=== PATIENT | female | born 1935 | race Caucasian/White ===

== ENCOUNTER 2016-08-19 08:42 | Observation (INO) | payer MEDICARE, BC ==
[2016-08-19] MEDS ORDERED: Diazepam TAB(*) 5 MG ONE (09:44)
[2016-08-19 09:54] LABS: Hematocrit 40 % (35-47); Hemoglobin 13.6 g/dl (12.0-16.0); Mean Corpuscular HGB Conc 34 g/dl (31-36); Mean Corpuscular Hemoglobin 32 pg (27-31); Mean Corpuscular Volume 95 fL (80-97); Mean Platelet Volume 9 um3 (7.4-10.4); Red Blood Count 4.22 10^6/ul (4.0-5.4); Red Cell Distribution Width 14 % (10.5-15); White Blood Count 8.7 10^3/ul (3.5-10.8)
[2016-08-19] MEDS ORDERED: ceFAZolin 2 GM PREMIX (*) 2 GM/50 ML BAG IVPB ONE (10:00)
[2016-08-19 10:04] LABS: BUN/Creatinine Ratio 16.8 (8-20); Calcium 9.2 mg/dL (8.6-10.3); EGFR Non-African American 56.7 (>60); Potassium 3.8 mmol/L (3.5-5.0)
[2016-08-19] MEDS ORDERED: Naloxone* 0.4 MG/ML 1 ML VIAL ONE (10:28)
[2016-08-19] MEDS ORDERED: fentaNYL* 50 MCG/ML 2 ML VIAL (100 MCG VIAL) ONE (10:28)
[2016-08-19] MEDS ORDERED: Flumazenil* 0.1 MG/ML 5 ML MDV ONE (10:28)
[2016-08-19] MEDS ORDERED: Midazolam* 1 MG/ML 5 ML VIAL (5 MG) ONE (10:28)
[2016-08-19] MEDS ORDERED: Iohexol 300 (CONTRAST) 10 ML SDV ONE (10:28)
[2016-08-19] MEDS ORDERED: Lidocaine 1% INJ* 10 MG/ML 30 ML SDV ONE (10:36)
[2016-08-19] MEDS ORDERED: Acetaminophen TAB* 325 MG PO PRN (12:09)
[2016-08-19] MEDS ORDERED: Potassium Chlor TAB* 10 MEQ TAB.ER PO ONE (12:17)
--- NOTE | 2016-08-19 13:08 | RAD ---
HISTORY: Status post pacemaker placement COMPARISONS: None VIEWS:1: Single frontal portable view of the chest at 12:30 PM FINDINGS: LINES AND TUBES: A dual-lead pacemaker is noted. CARDIOMEDIASTINAL SILHOUETTE: The cardiomediastinal silhouette is normal for portable technique. PLEURA: The costophrenic angles are sharp. No pleural abnormalities are noted. There is no appreciable pneumothorax. LUNG PARENCHYMA: The lungs are clear. ABDOMEN: The upper abdomen is clear. There is no subphrenic gas. BONES AND SOFT TISSUES: No bone or soft tissue abnormalities are noted. IMPRESSION: LINES AND TUBES ABOVE. NO ACTIVE CARDIOPULMONARY DISEASE.
[2016-08-19] MEDS: Cephalexin CAP* 250 MG PO SCH ×3 (15:29→21:37)
[2016-08-19] MEDS ORDERED: traZODone TAB* 50 MG TAB PO SCH (21:00)
--- NOTE | 2016-08-20 08:21 | RAD ---
INDICATION: Status post pacemaker placement. COMPARISON: Comparison is made with a prior study from August 19, 2016. TECHNIQUE: Dual-energy PA and lateral views of the chest were obtained. FINDINGS: The heart is within normal limits in size. There is a dual-chamber transvenous pacemaker present. The lungs are clear. No pleural effusion or pneumothorax is seen. IMPRESSION: Status post pacemaker placement, no evidence for acute finding.
[2016-08-20] MEDS: Cephalexin CAP* 250 MG PO SCH ×2 (08:47→13:16)
[2016-08-20] MEDS ORDERED: VITAMIN B PO SCH (09:00)
[2016-08-20] MEDS ORDERED: SELENIUM 200 MCG PO SCH (09:00)
[2016-08-20] MEDS ORDERED: Cholecalciferol TAB* 1000 UNITS PO SCH (09:00)
[2016-08-20] MEDS ORDERED: Ascorbic Acid TAB* 500 MG PO SCH (09:00)
[2016-08-20] MEDS ORDERED: Calcium/Vitamin D TAB 250/125* TAB PO SCH (09:00)
[2016-08-20] MEDS ORDERED: Diltiazem CD CAP* 120 MG PO SCH (10:00)
[2016-08-20 12:29] VITALS: BP 146/65
--- NOTE | 2016-08-20 19:39 | HP ---
ADMISSION HISTORY AND PHYSICAL: DATE OF ADMISSION: 08/19/16 HISTORY OF PRESENT ILLNESS: Mrs. Jang is a 80-year-old woman with a longstanding history of exercise-induced palpitations. She had supraventricular tachycardia documented on event monitors and Cardizem was started. She then had episodes of dizziness and an event monitor revealed 3.7- second pause as well as persistent bursts of supraventricular tachycardia. The patient was admitted for elective pacemaker implantation. PAST MEDICAL HISTORY: The patient has a past medical history of supraventricular tachycardia, sick sinus syndrome as above, dyslipidemia with an elevated LDL cholesterol, osteopenia, paroxysmal atrial fibrillation. PAST SURGICAL HISTORY: Tubal ligation. OUTPATIENT MEDICATIONS: Included: 1. Eliquis 5 mg b.i.d., on hold. 2. Selenium ER 200 mg a day. 3. Vitamin D3 high potency 1000 units daily. 4. Iron every other day. 5. Fish oil daily. 6. Vitamin B12 at 100 mcg a day. 7. Trazodone 50 mg q.h.s. 8. Calcium and vitamin D 600/800 mg daily. 9. Vitamin C 500 mg a day. 10. Aleve p.r.n. ALLERGIES: She has no known drug allergies. FAMILY HISTORY: Significant in that her father had several myocardial infarctions starting at age 79. Her mother with complications of diverticulosis. 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 She is . Supportive . Very physically active at the gym. Never smoked. Two alcoholic beverages a day. Likes her coffee. REVIEW OF SYSTEMS: Negative for fevers, chills, sweats, change in bowel or bladder habits. No recurrent dizziness episodes since Cardizem stopped but persistent palpitations intermittently. All other review of systems was negative. PHYSICAL EXAMINATION GENERAL APPEARANCE: Petite, fit appearing older woman in no acute distress, psychologically calm, cooperative, pleasant. VITAL SIGNS: On arrival to the hospital, the patient's blood pressure was 146/ 72, pulse was 77, saturations 99% on room air and she was afebrile at 98.0. HEENT: Pupils were equal and round. Mucous membranes were moist. NECK: Without increased JVP. LUNGS: Clear with good effort. No wheezes, rales or rhonchi. CORONARY: S1, S2 regular without murmurs. ABDOMEN: Soft, nontender. No hepatosplenomegaly. EXTREMITIES: Lower extremities were free of edema. NEUROLOGIC: Awake, alert and oriented to person, place and time. Cranial nerves II through XII intact. Grossly normal sensory and motor function in the upper and lower extremities and normal gait. SKIN: Warm and dry. No cyanosis or rashes. DIAGNOSTIC STUDIES AND LABORATORY DATA: White count 8.7, hemoglobin 13.6, platelets 206, INR 0.95. Sodium 135, potassium 3.8, chloride 100, bicarb 27, BUN 16, creatinine 0.95. SUMMARY: Dina Jang is a 80-year-old woman with tachy-shanique syndrome, supraventricular tachycardia with symptomatic bradycardia with Cardizem for elective pacemaker implantation. For her combination of supraventricular tachycardia and hypertension, I will reinitiate Cardizem CD 120 mg a day once the pacemaker is in. She has not been in sustained atrial fibrillation, and I am holding her Eliquis for 2 days prior to resuming it unless she develops atrial fibrillation post pacer. CC: Kwabena Garcia MD * [id number]/[facility] #: [id number] ANDREWS
--- NOTE | 2016-08-20 20:38 | OP ---
DATE OF OPERATION: 08/19/16 - ROOM #441 DATE OF : 37 SURGEON: Dana Sutton MD ANESTHESIA: MAC. PRE-OP DIAGNOSIS: Tachy-shanique syndrome. POST-OP DIAGNOSIS: Tachy-shanique syndrome. OPERATIVE PROCEDURE: Dual-chamber pacemaker implantation. ESTIMATED BLOOD LOSS: Less than 5 cc. COMPLICATIONS: None. DESCRIPTION OF PROCEDURE: The indications, specifics and risks of the procedure were discussed in depth with the patient and her and she was amenable to proceeding. The patient is right handed. The left subclavian fossa was prepped and draped in the usual sterile fashion. A time-out was called. Following this, throughout the procedure the patient received a total of 4 mg of Versed and 50 mcg of fentanyl as well as 20 cc of 1% lidocaine. A 10 cc of radiopaque dye was injected in the left upper extremity outlining the left subclavian vein. Following local anesthesia, using a 10 blade knife, a 2.5 cm incision was made in the left deltopectoral groove. Using Bovie and blunt dissection, this was extended to the level of the pectoralis muscle. Additional lidocaine was infused inferiorly, medially and using blunt dissection , a small pocket was fashioned. Using a modified Seldinger technique, the right subclavian vein was cannulated and using fluoroscopic guidance, a guidewire was inserted into the right atrium and the process was repeated with a second guidewire. Using an introducer technique, the right ventricular lead was guided into the right ventricular apex. Pacing and sensing thresholds were good. Using an introducer technique, a second lead was inserted into the right atrium. The first position had good sensing but suboptimal pacing, so the lead was then repositioned with excellent sensing and pacing thresholds. Both leads were then sutured to the pocket using 0 silk suture. The pocket was copiously irrigated. The leads were attached to the generator. The generator was placed in the pocket and the incision was closed using 2 layers of resorbable suture, 2 -0 followed by 4-0. It should be noted the OR lights went down transiently during the last suture. This did not lead to any complications and the backup generator system came on almost immediately. The shaw were then applied followed by an external dressing. We had checked pacing and sensing thresholds with the device in the pocket and diaphragmatic stimulation in high voltage had also been checked during the procedure. Findings: Device: Medtronic model A2DR01 Serial Number: [id number] Atrial lead: Medtronic model # 5076-45, Serial # [id number], P waves 2.3 mV, lead impedance 650 Ohms, Pacing threshold: 0.5 V @ 0.5 ms Ventricular lead: Medtronic model # 5076-52, Serial # [id number], R waves: 13.2 mV, lead impedance 1122 Ohms, pacing threshold: 0.9V @ 0.5 ms. The patient was hemodynamically stable throughout the procedure and transferred to Recovery in good condition. [id number]/[facility] #: [id number] ANDREWS
[2016-08-21] MEDS ORDERED: Apixaban* 5 MG TAB PO SCH (09:00)
--- NOTE | 2016-08-21 09:25 | DS ---
CC: Dr. Garcia; Dr. Sutton; Dr. Lainez DISCHARGE SUMMARY: DATE OF ADMISSION: 08/20/16 DATE OF DISCHARGE: 08/20/16 ADDENDUM: This is an addendum to history and physical note that was dictated by Dr. Sutton. Please refer to the full history and physical note dated . In summary, Ms. Jang is a pleasant 80-year-old female patient with diagnosis with tachybrady syndrome. She does have history of paroxysmal atrial fibrillation and has history of SVT and a permanent pacemaker implantation was recommended for further utilizing treatment that she was on Cardizem that was discontinued secondary to significant multiple pauses and concerns of significant bradycardia. The patient underwent permanent pacemaker implantation DDD by Dr. Sutton. Please refer to full operative note for that. She suffered no complications. She was seen by me today. She feels overall well. Her pacemaker interrogated today, it is functioning normally. It has lower rate of 60, upper rate of 130, and PAV 180, and SAMIR 150. The mode is AAI/DDD. It is sensing both atrium and ventricle 93% of the time. The patient on exam is hemodynamically stable. Examination of the pacemaker site on the left subclavicular area, no signs of hematoma and no bleeding. The patient had a chest x-ray today that showed no acute findings. She had labs from yesterday with a white blood cell of 8.7, hemoglobin 13.6, hematocrit 40, and platelets 206. Chemistry showed sodium 135, potassium 3.8, carbon dioxide 27, BUN 16, and creatinine 0.95. Her medications, she was started on Cardizem at 120 mg daily and she is to take Keflex 250 mg p.o. q.i.d. as directed by Dr. Sutton. She is to continue on her other medications, which is Eliquis 5 mg twice a day and vitamin D at 1000 units daily, vitamin C 500 mg daily, vitamin B12 at 100 mcg daily, selenium 200 mcg daily, and trazodone 50 mg p.o. at bedtime. She will have arrangements to follow up with Dr. Sutton in 1 week. She had all the instructions and the care of her permanent pacemaker, the aftercare after the implant. I answered all her concerns and questions up to her satisfaction. [id number]/[facility] #: [id number] MTDD
== END 2016-08-20 14:41 | disposition home or self-care (01) ==
LOC: CHICATH 08:42 → MEDTELE 12:09
PROVIDERS: ADMIT Specialist; ATTEND Specialist
DX: I49.5 Sick sinus syndrome (principal); I48.0 Paroxysmal atrial fibrillation; Z79.01 Long term (current) use of anticoagulants; I47.1 Supraventricular tachycardia; E78.5 Hyperlipidemia, unspecified; E78.00 Pure hypercholesterolemia, unspecified; Z79.899 Other long term (current) drug therapy
CPT/HCPCS: 33208; 36415; 71010; 71020; 80048; 85025; 85610; 85730; 93005; A9270-GY; C1785; C1898; G0378; J0690; J2250; J2310; J3010; Q9967

== ENCOUNTER 2016-10-23 01:19 | Emergency (ER) | payer MEDICARE, BC ==
[2016-10-23] MEDS ORDERED: Albuterol 2.5 MG/3 ML NEB.SOL* (0.083%) INH ONE (01:54)
[2016-10-23] MEDS ORDERED: methylPREDNISolone 125 MG* 2 ML VIAL IV ONE (01:55)
[2016-10-23] MEDS ORDERED: Albuterol 2.5 MG/3 ML NEB.SOL* (0.083%) ONE (02:03)
[2016-10-23 02:22] LABS: Hematocrit 36 % (35-47); Hemoglobin 11.9 g/dl (12.0-16.0); Mean Corpuscular HGB Conc 33 g/dl (31-36); Mean Corpuscular Hemoglobin 31 pg (27-31); Mean Corpuscular Volume 95 fL (80-97); Mean Platelet Volume 9 um3 (7.4-10.4); Red Blood Count 3.82 10^6/ul (4.0-5.4); Red Cell Distribution Width 14 % (10.5-15); White Blood Count 16.2 10^3/ul (3.5-10.8)
[2016-10-23 02:24] LABS: Add Diff/Slide Review? Slide Review Added; Comments Flag Yes
[2016-10-23 02:34] LABS: Albumin 3.7 g/dL (3.2-5.2); BUN/Creatinine Ratio 30.9 (8-20); Calcium 9.1 mg/dL (8.6-10.3); EGFR African American 87.7 (>60); EGFR Non-African American 68.2 (>60); Globulin 2.9 g/dL (2-4); Potassium 4.4 mmol/L (3.5-5.0); Total Bilirubin 0.7 mg/dL (0.2-1.0); Total Protein 6.6 g/dL (6.4-8.9)
[2016-10-23 02:50] LABS: Troponin I 0.49 ng/mL (<0.04)
[2016-10-23] MEDS ORDERED: Aspirin TAB* 325 MG PO ONE (02:55)
[2016-10-23] MEDS ORDERED: Nitroglycerin 2% OINT* 1 GM PAK TOPICAL ONE (03:11)
[2016-10-23] MEDS ORDERED: Nitroglycerin 2% OINT* 1 GM PAK ONE (03:11)
[2016-10-23] MEDS ORDERED: Heparin DRIP 25,000 UNITS(*) 25,000 UNITS/500 ML BAG IV ONE (03:15)
[2016-10-23] MEDS ORDERED: Iohexol 350* (CONTRAST) 500 ML MDV IV ONE (03:15)
[2016-10-23] MEDS ORDERED: Furosemide IV* 10 MG/ML 2 ML VIAL (20 MG) IV SLOW PU ONE (03:53)
[2016-10-23] MEDS ORDERED: Furosemide IV* 10 MG/ML 10 ML VIAL (100 MG) IV ONE (03:53)
[2016-10-23] MEDS ORDERED: Heparin VIAL(*) 5000 UNITS/ML VIAL (FIVE THOUSAND) IV SCH ×2 (04:00)
[2016-10-23] MEDS ORDERED: Piperac/Tazob 3.375 gm in NS* 3.375 GM/100 ML BAG IVPB ONE (04:55)
--- NOTE | 2016-10-23 05:25 | ED ---
Dior Kirkland Matthew, scribed for Marc Rubi on 10/23/16 at 0221 . Shortness of Breath - HPI Summary HPI Summary: A 80 y/o female presents to the ED with constant SOB since 21:00 yesterday. She denies pedal edema, chest pain, cough, and fever. On 10/13/16, the patient states that she had a cardiac ablation at [facility]. Her O2 sat on arrival was 90% . Hx of Afib and atrial flutter. The patient has a pacemaker. She isn't on home oxygen. No Hx of COPD, asthma, or emphysema. FHx of CAD. - History of Current Complaint Chief Complaint: EDRespiratoryDistress Time Seen by Provider: 10/23/16 01:43 Hx Obtained From: Patient Onset/Duration: Lasting Hours, Still Present Timing: Constant Current Severity: Moderate Dyspnea At: Rest Associated Signs & Symptoms: Wheezing - Allergy/Home Medications Allergies/Adverse Reactions: Allergies Allergy/AdvReac Type Severity Reaction Status Date / Time No Known Allergies Allergy Verified 08/19/16 09:21 Home Medications: Home Medications Calcium Carbonate-Cholecalcife [Calcium+D3 600-800 mg-Unit] 1 tab PO 10/23/16 [ History] Diltiazem CD CAP* [Cardizem CD CAP*] 120 mg PO BID 10/23/16 [History Confirmed 10/23/16] Dofetilide CAP* [Tikosyn CAP*] 125 mcg PO BID 10/23/16 [History Confirmed ] [place]-3 Fatty Acids (Nf) [Fish Oil (NF)] 1,000 mg PO DAILY 10/23/16 [History Confirmed 10/23/16] Pantoprazole Sodium [Protonix] 40 mg PO DAILY 10/23/16 [History Confirmed ] Potassium Chloride Microencaps [Potassium Chloride Cr] 10 meq PO BID 10/23/16 [ History Confirmed 10/23/16] Sucralfate TAB* [Carafate*] 1 gm PO QID 10/23/16 [History Confirmed 10/23/16] PMH/Surg Hx/FS Hx/Imm Hx Cardiovascular History: Reports: Hx Pacemaker/ICD - 08/19/2016, Other Cardiovascular Problems/Disorders - atrial fibrillation - Cancer History Hx Chemotherapy: No Hx Radiation Therapy: No Infectious Disease History: No Infectious Disease History: Denies: Traveled Outside the [place] in Last 30 Days - Family History Known Family History: Positive: Cardiac Disease - Social History Alcohol Use: Daily Alcohol Amount: x 1 Substance Use Type: Reports: None Smoking Status (MU): Never Smoked Tobacco Review of Systems Constitutional: Negative Negative: Fever Eyes: Negative ENT: Negative Negative: Chest Pain Positive: Shortness Of Breath. Negative: Cough Gastrointestinal: Negative Genitourinary: Negative Musculoskeletal: Negative Skin: Negative Neurological: Negative Psychological: Normal All Other Systems Reviewed And Are Negative: Yes Physical Exam Triage Information Reviewed: Yes Vital Signs On Initial Exam: Initial Vitals Temp Pulse Resp BP Pulse Ox 98.4 F 87 28 150/83 99 10/23/16 01:24 10/23/16 01:24 10/23/16 01:24 10/23/16 01:24 10/23/16 01:24 Vital Signs Reviewed: Yes Appearance: Positive: Well-Appearing, No Pain Distress Skin: Positive: Warm, Skin Color Reflects Adequate Perfusion, Dry Head/Face: Positive: Normal Head/Face Inspection Eyes: Positive: EOMI, TRENT ENT: Positive: Normal ENT inspection Neck: Positive: Supple, Nontender Respiratory/Lung Sounds: Positive: Clear to Auscultation, Wheezes - mild wheezing bilaterally Cardiovascular: Positive: RRR, Pulses are Symmetrical in both Upper and Lower Extremities Abdomen Description: Positive: Nontender, Soft Bowel Sounds: Positive: Present Musculoskeletal: Positive: Normal, Strength/ROM Intact Neurological: Positive: Normal, Sensory/Motor Intact, Alert, Oriented to Person Place, Time Psychiatric: Positive: Affect/Mood Appropriate Diagnostics - Vital Signs Vital Signs Temp Pulse Resp BP Pulse Ox 10/23/16 01:24 98.4 F 87 28 150/83 99 - Laboratory Result Diagrams: 10/23/16 02:15 10/23/16 02:15 Lab Statement: Any lab studies that have been ordered have been reviewed, and results considered in the medical decision making process. - Radiology CXR Xray Interpretation: No Acute Changes Radiology Interpretation Completed By: ED Physician - CT CTA Chest CT Interpretation: Positive (See Comments) - No evidence of pulmonary embolism. Cardiomegaly. Coronary artery calcification seen. Moderate pericardial effusion. No aortic aneurysm. No mediastinal hematoma. Mild reflux of IV contrast into the proximal IVC, suggestive of elevated right heart pressures. Dual-lead pacemaker with the tip in the right atrium and right ventricle. Moderate-sized bilateral pleural effusions with adjacent atelectasis. Underlying consolidation cannot be excluded. Suggestion of possible hepatosplenomegaly. CT Interpretation Completed By: Radiologist - EKG 01:55 Cardiac Rate: NL - 79 bpm EKG Interpretation: Sinus Arrhythmia Course/Dx - Course Assessment/Plan: A 80 y/o female presents to the ED with constant SOB since 21: 00 yesterday s/p cardiac ablation on 10/13/16. Labs were reviewed and showed troponin of 0.49 and D-dimer of 618. CXR showed no active cardiopulmonary disease. CTA Chest shows moderate pericardial effusion and pleural effusion. Discussed the case with Dr. Alvarez who in turn discussed the case with Dr. Adam (Screen Printing Paster). Dr. Adam recommended transfer of the patient to [facility] for pericardial effusion. Discussed the case with Dr. Paulson who accepts transfer of the patient. - Diagnoses Provider Diagnoses: Dyspnea, Pericardial effusion, Pleural effusion - Physician Notifications Discussed Care of Patient With: Dr. Alvarez (Hospitalist) at 03:22 -- Notified of patient's history. He recommends repeat troponin at 04:15 and he'll evaluate the patient. Dr. Paulson (Cardiology) at 04:46 -- Notified of patient's history and accepts transfer of the patient. Discharge - Discharge Plan Condition: Stable Disposition: TRANS HIGHER LVL OF CARE FAC Referrals: Kwabena Garcia MD [Primary Care Provider] - The documentation as recorded by the Dior rogers Matthew accurately reflects the service I personally performed and the decisions made by , Marc Rubi.
[2016-10-23 06:06] VITALS: BP 117/67
[2016-10-23] MEDS ORDERED: Dofetilide CAP* 125 MCG PO ONE (06:14)
--- NOTE | 2016-10-23 07:25 | CONSULT ---
Consult Consult: PCP: Lo Garcia MD Date/Time of Evaluation: 10/23/2016 0215 Reason for Consult: consideration for admission HPI: Mrs Jang is a 80YO female 3 days s/p pulmonary vein ablation for AFIB done at [facility] who has been have new intermittent SOB primarily at night since. Tonight she tried to go to bed around 2130, but was unable to sleep 2nd progressive PND now with some substernal chest pressure worsened by deep inspiration. She denied N/V, palpitations, light-headedness, sweats, F/C, cough , congestion, or other issues. Troponin is 0.49, in line with the expected peak in cardiac markers 3 days post ablation and should return to normal by day 7. Vital signs are stable and normal excepting a RR in the mid-20s. CXR shows poor inspiration with suspicion of B subpulmonic effusions vs less likely atelectasis or infiltrates. Given her symptoms, a d-dimer in the 600s, and recent procedure known to cause hypercoagulabilty for 2weeks as well as concern for potential injury from the ablation, decision was made to await CTA chest to further evaluate. CTA showed a presumably new moderate pericardial effusion as there was no mention of it in Arnie Sutton MD cardiology's H&P dated 08/19/2016 at which time Mrs Jang underwent dual chamber pacer placement for sick sinus syndrome. Ruma Adam MD cardiology pss delivery professional was consulted via phone and agreed the risk of trauma from her ablation being the cause of her pericardial effusion made her inappropriate for [facility] admission and so recommendation for transfer back to [facility] was made. PMedHx sick sinus syndrome s/p dual chamber pacer 08/2016 pulmonary vein ablation 10/20/2016 SVT HLD pAFIB osteopenia Allergies No Known Allergies Allergy (Verified 08/19/16 09:21) Ambulatory Orders Calcium 600+D 600-800 mg-Unit 1 tab PO DAILY 08/19/16 Eliquis 5 mg PO BID 08/19/16 Fish Oil 1 cap PO DAILY 08/19/16 Iron 28 mg PO DAILY 08/19/16 Naprosyn 400 mg PO PRN 08/19/16 Selenium 200 Mcg 200 mg PO DAILY 08/19/16 Trazodone HCl 50 mg PO BEDTIME 08/19/16 Vitamin B 12 100 mcg PO DAILY 08/19/16 Vitamin C 500 mg PO DAILY 08/19/16 Vitamin D3 1,000 units PO DAILY 08/19/16 Acetaminophen TAB* [Tylenol TAB*] 650 mg PO Q4H PRN #0 tab 08/20/16 Calcium Carbonate-Cholecalcife [Calcium+D3 600-800 mg-Unit] 1 tab PO 10/23/16 Diltiazem CD CAP* [Cardizem CD CAP*] 120 mg PO BID 10/23/16 Dofetilide CAP* [Tikosyn CAP*] 125 mcg PO BID 10/23/16 [place]-3 Fatty Acids (Nf) [Fish Oil (NF)] 1,000 mg PO DAILY 10/23/16 Pantoprazole Sodium [Protonix] 40 mg PO DAILY 10/23/16 Potassium Chloride Microencaps [Potassium Chloride Cr] 10 meq PO BID 10/23/16 Sucralfate TAB* [Carafate*] 1 gm PO QID 10/23/16 PSurgHx as above, otherwise only tubal ligation SocHx: no tobacco, quit 2 alcoholic beverages daily recently, no recreational drugs; lives with her , physically active; 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; 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 FamHx: positive for CAD ROS: as above, otherwise reviewed and all were negative Constitutional: NAD, normally developed, well-nourished elderly white female vitals: Vital Signs Temp 36.6 C 10/23/16 02:57 Pulse 84 10/23/16 06:00 Resp 22 10/23/16 06:00 BP 117/67 10/23/16 06:00 Pulse Ox 94 10/23/16 06:00 Intake & Output 10/22/16 10/22/16 10/23/16 11:59 23:59 11:59 Intake Total 100 Balance 100 Weight 52.163 kg Intake: IV Fluids 100 HEENM: atraumatic; sclera/conjunctiva: non-icteric/clear; hearing: clinically intact; oropharynx: clear, mucosa moist Neck: soft tissue: non-tender; thyroid: normal Pulmonary: diminished B based, fair aeration, no accessory muscle use CV: RR/RR, normal S1S2, no carotid bruit, no jugular venous distention, 1+ B DP/ PT, trace B ankle edema Abdominal: soft, non-distended, non-tender, no rebound/guarding/rigidity, normoactive bowel sounds, no hepatosplenomegaly or masses, no costovertebral angle tenderness Musculoskeletal: general: grossly intact; gait: steady Integumental: normal appearance and texture of exposed skin Psychiatric orientation: AA&O to PPS affect: mildly anxious mood: pleasant eye contact: good content: reliable responses: timely insight: good Testing: Lab Results 10/23/16 10/23/16 10/23/16 Range/Units 02:15 02:15 02:15 WBC 16.2 H (3.5-10.8) 10^3/ul RBC 3.82 L (4.0-5.4) 10^6/ul Hgb 11.9 L (12.0-16.0) g/dl Hct 36 (35-47) % MCV 95 (80-97) fL MCH 31 (27-31) pg MCHC 33 (31-36) g/dl RDW 14 (10.5-15) % Plt Count 169 (150-450) 10^3/ul MPV 9 (7.4-10.4) um3 Neut % (Auto) 83.8 H (38-83) % Lymph % (Auto) 8.7 L (25-47) % [place] % (Auto) 5.6 (1-9) % Eos % (Auto) 0.3 (0-6) % Baso % (Auto) 1.6 (0-2) % Absolute Neuts (auto) 13.5 H (1.5-7.7) 10^3/ul Absolute Lymphs (auto) 1.4 (1.0-4.8) 10^3/ul Absolute Monos (auto) 0.9 H (0-0.8) 10^3/ul Absolute Eos (auto) 0 (0-0.6) 10^3/ul Absolute Basos (auto) 0.3 H (0-0.2) 10^3/ul Absolute Nucleated RBC 0.01 10^3/ul Nucleated RBC % 0 INR (Anticoag Therapy) 1.26 H (0.89-1.11) APTT 27.0 (26.0-36.3) seconds D-Dimer, Quantitative 618 H (Less Than 230) ng/mL Sodium 130 L (133-145) mmol/L Potassium 4.4 (3.5-5.0) mmol/L Chloride 98 L (101-111) mmol/L Carbon Dioxide 25 (22-32) mmol/L Anion Gap 7 (2-11) mmol/L BUN 25 H (6-24) mg/dL Creatinine 0.81 (0.51-0.95) mg/dL Est GFR ( Amer) 87.7 (>60) Est GFR (Non-Af Amer) 68.2 (>60) BUN/Creatinine Ratio 30.9 H (8-20) Glucose 126 H (70-100) mg/dL Calcium 9.1 (8.6-10.3) mg/dL Total Bilirubin 0.70 (0.2-1.0) mg/dL AST 46 H (13-39) U/L ALT 51 (7-52) U/L Alkaline Phosphatase 73 (34-104) U/L Total Creatine Kinase 31 (10-223) U/L CK-MB (CK-2) 3.0 (0.6-6.3) ng/mL Troponin I 0.49 H* (<0.04) ng/mL B-Natriuretic Peptide ( - 100) pg/mL Total Protein 6.6 (6.4-8.9) g/dL Albumin 3.7 (3.2-5.2) g/dL Globulin 2.9 (2-4) g/dL Albumin/Globulin Ratio 1.3 (1-3) 03//17 Range/Units 02:15 WBC (3.5-10.8) 10^3/ul RBC (4.0-5.4) 10^6/ul Hgb (12.0-16.0) g/dl Hct (35-47) % MCV (80-97) fL MCH (27-31) pg MCHC (31-36) g/dl RDW (10.5-15) % Plt Count (150-450) 10^3/ul MPV (7.4-10.4) um3 Neut % (Auto) (38-83) % Lymph % (Auto) (25-47) % [place] % (Auto) (1-9) % Eos % (Auto) (0-6) % Baso % (Auto) (0-2) % Absolute Neuts (auto) (1.5-7.7) 10^3/ul Absolute Lymphs (auto) (1.0-4.8) 10^3/ul Absolute Monos (auto) (0-0.8) 10^3/ul Absolute Eos (auto) (0-0.6) 10^3/ul Absolute Basos (auto) (0-0.2) 10^3/ul Absolute Nucleated RBC 10^3/ul Nucleated RBC % INR (Anticoag Therapy) (0.89-1.11) APTT (26.0-36.3) seconds D-Dimer, Quantitative (Less Than 230) ng/mL Sodium (133-145) mmol/L Potassium (3.5-5.0) mmol/L Chloride (101-111) mmol/L Carbon Dioxide (22-32) mmol/L Anion Gap (2-11) mmol/L BUN (6-24) mg/dL Creatinine (0.51-0.95) mg/dL Est GFR ( Amer) (>60) Est GFR (Non-Af Amer) (>60) BUN/Creatinine Ratio (8-20) Glucose (70-100) mg/dL Calcium (8.6-10.3) mg/dL Total Bilirubin (0.2-1.0) mg/dL AST (13-39) U/L ALT (7-52) U/L Alkaline Phosphatase (34-104) U/L Total Creatine Kinase (10-223) U/L CK-MB (CK-2) (0.6-6.3) ng/mL Troponin I (<0.04) ng/mL B-Natriuretic Peptide 478 H ( - 100) pg/mL Total Protein (6.4-8.9) g/dL Albumin (3.2-5.2) g/dL Globulin (2-4) g/dL Albumin/Globulin Ratio (1-3) ECG, personally reviewed: NSR rate 79, non-specific ST-T flattening in inferior leads similar to comparison 08/20/2016 CXR, personally reviewed: poor inspiration with suspicion of B subpulmonic effusions vs less likely atelectasis or infiltrates CTA chest, personally reviewed: FINDINGS: No evidence of pulmonary embolism. Cardiomegaly. Coronary artery calcification seen. Moderate pericardial effusion. No aortic aneurysm. No mediastinal hematoma. Mild reflux of IV contrast into the proximal IVC, suggestive of elevated R heart pressures. Dual- lead pacemaker with the tip in the right atrium and right ventricle. Moderate- sized bilateral pleural effusions with adjacent atelectasis. Underlying consolidations cannot be excluded. Suggestion of possible hepatosplenomegaly. Impression: 80F presenting with progressive PND since pulmonary vein ablation for AFIB 3 days ago with new finding of moderate pericardial effusion and moderate B pleural effusions DIAGNOSIS & PLAN Primary new/acute pericardial effusion : concerning for potential pulmonary vein injury : transfer to [facility] for further evaluation and management at higher level of care w/ access to open heart & cardiovascular surgery : D/C heparin GTT initiated in ED AFIB : give dofetilide dose at 6:30AM as scheduled prior to transfer, Dr Rubi notified of need B pleural effusions w/ elevated BNP : suspect related to CHF 2nd possible evolving cardiac tamponade vs other etiology : give 20mg IV furosemide & continue nitropaste
[2016-10-23] MEDS ORDERED: Nitroglycerin 0.1 mg/Hr PATCH* (2.5 MG) TRANSDERM SCH (09:00)
--- NOTE | 2016-10-23 09:55 | RAD ---
INDICATION: Difficulty breathing. Post pulmonary vein ablation on Tuesday. COMPARISON: October 23, 2016 chest radiograph. TECHNIQUE: Multidetector CT images were obtained from the lung apices to the upper abdomen with 58 mL Omnipaque 350 IV contrast. Pulmonary angiogram protocol. 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 REPORT: Small bilateral pleural effusions. Pleural fluid tracks into the LEFT major fissure superiorly. Proportional atelectasis. Mild prominence of the interlobular septa. Negative for pneumothorax. Negative for thoracic lymphadenopathy. Cardiomegaly. Coronary artery calcifications. Small pericardial effusion. RIGHT atrial and RIGHT ventricular pacemaker leads. Normal diameter thoracic aorta with minimal atherosclerotic plaque. No filling defects are identified from the main to the subsegmental pulmonary arteries to indicate presence of a pulmonary embolism. Limited images through the upper abdomen are remarkable for mild reflux of contrast from the RIGHT atrium to the IVC and hepatic veins. Negative for suspicious thoracic osseous lesions. IMPRESSION: 1. No evidence for pulmonary embolism. 2. The constellation of findings is most consistent with pulmonary vascular congestion and interstitial edema with associated small pleural effusions. 3. Mild passive congestion of the liver.
--- NOTE | 2016-10-23 10:08 | RAD ---
Indication: Shortness of breath. Atrial fibrillation. Comparison: CT chest of the same date and August 20, 2016 chest radiograph. Technique: Upright AP 0214 hours Report: Suboptimal inspiration with resulting crowding of the pulmonary markings. Mild prominence of the interstitial markings including the peripheral interlobular septa. Grossly clear pleural spaces. Negative for pneumothorax. RIGHT atrial and RIGHT ventricular level pacemaker leads. Cardiomegaly. Ill-defined central pulmonary vasculature. IMPRESSION: The constellation of findings is most consistent with mild interstitial pulmonary edema.
== END 2016-10-23 06:57 | disposition short-term general hospital (02) ==
LOC: ED 01:19
DX: I31.3 Pericardial effusion (noninflammatory) (principal); R06.00 Dyspnea, unspecified; J90 Pleural effusion, not elsewhere classified; R06.02 Shortness of breath
CPT/HCPCS: 36415; 71010; 71275; 80053; 82550; 82553; 83880; 84484; 85025; 85379; 85610; 85730; 93005; 94640; 96374; 96375; 99284; A9270-GY; J1644; J1940; J2543; J2930; Q9967

== ENCOUNTER 2017-12-25 21:36 | Emergency (ER) | payer MEDICARE, OTHER ==
--- NOTE | 2017-12-25 21:37 | UC ---
Cardiac HPI - HPI Summary HPI Summary: 82 yo female presents with left sided chest pain for the last 30 minutes. She was sitting reading a book with she felt a pain in her left chest. She describes the pain as sharp and is unsure if it is her breast or her chest/ heart. She tells me that she has an extensive cardiac history - is in and out of afib and has a pacemaker. Denies SOB, BUTLER, recent illness, dizziness, headache, abdominal pain, n/v. - History of Current Complaint Stated Complaint: CHEST PAIN Hx Obtained From: Patient Onset/Duration: Sudden Onset Timing: Constant Initial Severity: Moderate Current Severity: Moderate Pain Intensity: 6 Chest Pain Location: Left Anterior - Allergy/Home Medications Allergies/Adverse Reactions: Allergies Allergy/AdvReac Type Severity Reaction Status Date / Time No Known Allergies Allergy Verified 12/25/17 22:40 PMH/Surg Hx/FS Hx/Imm Hx Cardiovascular History: Cardiac Disease, Pacemaker/ICD, Atrial Fibrillation - Surgical History Surgical History: Yes Surgery Procedure, Year, and Place: pacemaker 08/31 - Family History Known Family History: Positive: Cardiac Disease - Social History Occupation: Retired Lives: With Family Alcohol Use: Daily Alcohol Amount: x 1 Substance Use Type: None Smoking Status (MU): Never Smoked Tobacco Review of Systems Constitutional: Fever Skin: Negative Eyes: Negative ENT: Negative Respiratory: Negative Cardiovascular: Chest Pain Gastrointestinal: Negative Genitourinary: Negative Neurovascular: Negative Neurological: Negative Psychological: Negative All Other Systems Reviewed And Are Negative: Yes Physical Exam - Summary Physical Exam Summary: GENERAL: NAD. WDWN. No pain distress. SKIN: No rashes, sores, lesions, or open wounds. NECK: Supple. Nontender. No lymphadenopathy. CHEST: CTAB. No r/r/w. No accessory muscle use. Breathing comfortably and in no distress. CV: RRR. scant possible PVC. Pulses intact. Brisk cap refill. NEURO: Alert. CN II-XII grossly intact. PSYCH: Age appropriate behavior. Triage Information Reviewed: Yes - Assessment/Plan Course Of Treatment: EKG 99 bpm atrial-paced complexes. PVCs. No ST changes as read by Dr. Jones. Her exam and vitals are WNL. She is still having mild chest discomfort. Given her cardiac history and continued discomfort - I advised her that for a more appropriate workup of her chest pain she should be evaluated in the ER. She was agreeable to this. Declined ambulance. will drive her. - Clinical Impression Provider Diagnoses: Chest pain Discharge - Sign-Out/Discharge Documenting (check all that apply): Discharge/Admit/Transfer - Discharge Plan Condition: Stable Disposition: HOME Referrals: Kwabena Garcia MD [Primary Care Provider] - Additional Instructions: For a more appropriate evaluation of your chest pain - please go to the Emergency Room. If your symptoms worsen on the way there, please line puller and dial 911. - Billing Disposition and Condition Condition: STABLE Disposition: HOME
[2017-12-25 21:50] VITALS: BP 145/88
--- OUTSIDE RECORDS SUMMARY | 2017-12-25 22:51 | XMS REPORT ---
:1935 External Reference #:[id number] Author Organization [facility] Address [address] [place] [address] Phone [phone] Care Team Providers Name Role Phone HCP/LW on file Primary Care Physician Unavailable Payers Type Date Identification Numbers Payment Provider Subscriber Medicare Primary Policy Number: [id number] [facility] [employer] PayID: [id number] [address] [place] [address] Commercial Effective: 2017 Policy Number: [facility] Al Hendrix Luan [id number] Insurance Group Number: [id number] [address] Group Name: [place] [address] PayID: [id number] Medigap Part B Effective: Policy Number: [employer] Al Hendrix 2017 [id number] Ind/Ppo/Hmo/Pos Luan Expires: 2017 PayID: [id number] [address] [address] [place] [address] Problems Date Description Provider Status Onset: 09/17/2011 Disorders of initiating and Kwabena Garcia M.D. Active maintaining sleep Family History Date Family Member(s) Problem(s) Comments Father Heart Disease beginning at age 79 Father due to Heart Disease () - problems age 80 Father heart disease at age 79, due to this at age 80 Mother due to Complications () From Diverticulosis Age 80 Mother due to complications from diverticulosis @ 80. 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 a little more. 1/08 Beverages Per Day pt aware that decreasing to 1/d is advisable for her health (but not willing/wanting to change). Discussed 09/14/10, at wc time she reported drinking little [id number] Daily Caffeine Consumes Caffeine Sun Exposure moderate amount of sun exposure Sun Exposure Uses sunscreen Seat Belt/Car Seat always uses seat belt Currently Active Patient is currently sexually active Contraceptive Methods None Age 1st Metter 23 Years Old Additional Info Sexual preference is men Allergies, Adverse Reactions, Alerts Date Description Reaction Status Severity Comments 09/01/2005 NKDA active Medications Medication Date Status Form Strength Qnty SIG Indications Ordering Provider Selenium 09/13/ Active Tablets 100mcg 1 tablet by Unknown 2018 mouth daily Cartia XT 05/23/ Active Caps ER 120mg 1 qd 2016 24HR MD Dana Dofetilide 10/18/ Active Capsules 125mcg 180ca 1 capsule Unknown 2016 ps by mouth every 12 hours Eliquis 01/22/ Active Tablets 5mg 1 by mouth 2015 twice a day MD Dana Vit D3 09/01/ Active 1000Iu 1 po qd Unknown 2005 Metoprolol 09/14/ Hx Tablets ER 25mg take 1/2 Silcoff, Succinate ER 2017 - 24HR tablet by Kwabena, 09/21/ mouth every M.D. 2018 morning for 1 week then stop it Doxycycline 05/06/ Hx Tablets 100mg 28tab 1 by mouth A69.20 Silcoff, Hyclate 2016 - s twice a day Kwabena 05/20/ for 2 weeks M.D. 2016 for lyme disease Spironolactone 03/17/ Hx Tablets 25mg 1/2 tablet Herman, 2016 - in am on MD Dana 2016, and Sat Colchicine 01/27/ Hx Tablets 0.6mg Take One Unknown 2017 - Tablet By 04/04/ Mouth Every 2016 Day Furosemide 01/27/ Hx Tablets 20mg one tab in Herman2016 - am on MD Dana Mondays Doxycycline 03/15/ Hx Capsules 100mg one po Unknown Monohydrate 2016 - twice daily 2016 Cefuroxime 10/27/ Hx Tablets 500mg one po Unknown Axetil 2017 - twice daily 2016 PT For Right 10/19/ Hx evaluate M66.821 Silcoff, Shoulder Pain, 2016 - and treatKwabena Ruptured Biceps 03/20/ modalities M.DMaribeth Tendon 2016 prn, instruct in hep M25.511 S46.011A Sucralfate 10/14/2016 - Hx Tablets 1gm 120tabs Take One Unknown 11/21/2016 Tablet By Mouth Four Times A Day Pantoprazole 10/13/2016 - Hx Tablets DR 40mg 30tabs 1 tablet by Unknown Sodium 11/21/2016 mouth daily Sotalol HCL 09/17/2016 - Hx Tablets 120mg 1/2 tablet I48 [place], 10/02/2016 2x/day for .92 MD Dana heart rate/rhythm control Potassium 09/17/2016 - Hx Tablets ER 10Meq 1 tablet by [place], Chloride ER 04/05/2017 mouth twice MD Dana daily PT For Left 08/10/2016 - Hx please M54 Silcoff, Buttock And Leg 10/11/2016 evaluate and .17 Bill Yuan treat, Anshul instruct in hep, modalities prn Diltiazem HCL ER 06/15/2016 - Hx Caps ER 12HR 120mg 30caps 1 by mouth R00 Silcoff, 07/28/2016 every morning .0 Kwabena for heart M.D. rate control Clobetasol 02/10/2016 - Hx Ointment 0.05% 45gm apply to L13 Silcoff, Propionate 06/14/2016 affected area .9 Kwabena, on right leg M.D. 2x/day until clear L23.7 Ibuprofen 07/22/2014 - Hx Capsules 200mg OTC 2 to 4 tab by Unknown 08/01/2015 mouth 6 to 8 hours. maximum is 2400mg/day. ( 600 q6 or 800mg 8h) tylenol 1gm 6h. prn PT For Right 09/19/2012 - Hx evaluate and 72 Silcoff, Shoulder Pain 10/01/2013 treat, 6. luis alfredo Yuan prn, 10 M.DMaribeth instruct in hep Vitamin C 09/17/2012 - Hx Tablets 500mg 60tabs 1 tablet qd Silcoff, 10/29/2016 (take it along Kwabena, with your iron M.D. supplement). Zolpidem 09/17/2011 - Hx Tablets ER 12.5mg 30tabs 1 by mouth 30 Silcoff , Tartrate ER 10/02/2013 every night as 7. Kwabena, needed for 42 M.D. sleep Calcium/Vitamin 09/16/2011 - Hx Tablets 600mg/40 take one tablet Unknown D 09/13/2017 0 Units by mouth daily for osteoporosis Zolpidem 05/18/2011 - Hx Tablets 10mg 30tabs 1 by mouth 30 Silcoff, Tartrate 09/17/2011 every night as 7. Kwabena, needed for 42 M.D. sleep; take this only if you have at least 8hrs to devote to sleep Trazodone HCL 09/22/2010 - Hx Tablets 50mg 180tab 1/2-2 by mouth F5 Silcoff, 10/28/2016 s every night at 1. Kwabena, bedtime as 01 M.D. needed for sleep (take it 1/2hr before bed) Zolpidem 09/14/2010 - Hx Tablets 10mg 30tabs 1/2-1 by mouth 30 Silcoff, Tartrate 09/22/2010 every night as 7. Kwabena, needed for 42 M.D. sleep Vitamin B12 09/11/2010 - Hx Tablets 100mcg daily Unknown 05/24/2017 Fish Oil 09/11/2010 - Hx Capsules 1000mg 1 po qd Unknown 05/24/2017 Iron Supplement 09/11/2010 - Hx Tablets 28mg One Tab PO Unknown 10/29/2016 Every Other Day w/Vitamin C Amoxicillin 08/03/2010 - Hx Tablets 500mg 60tabs 2 po tid for 10 46 Silcoff, 08/17/2010 days for 5. Kwabena, sinusitis; 9 M.D. start this at the end of this week if not improving Acetaminophen 07/28/2010 - Hx Tablets 325mg 2 tab po q6 h 46 Shaheen, 07/28/2011 prn pain/fever 5. Ivet WATSON is minimum 9 dose. can use up to 1gm q6 can add ibuprofen 400mg q8h. Reginald Hawk 07/28/2010 - Hx Capsules 100mg 30caps 1 to 2 tab po 46 Shaheen, 08/03/2010 tid prn cough 5. Ivet WATSON 9 Fluticasone 07/28/2010 - Hx Suspension 50mcg/Ac 1units 2 sprays into 46 Shaheen, Propionate 07/28/2010 t each nostril qd 5. Ivet WATSON for nasal 9 congestion. rinse mouth post Cough 07/28/2010 - Hx also honey and 46 Shaheen, Suppressants In 08/03/2010 or tessalon 5. Ivet WATSON hs Such as christiano. use 9 Dextromethorphan with the (Delsym) mucinex to break up sputum stay hydrated. steam and irrigation sinuses. Mucinex 07/28/2010 - Hx Tablets ER 600mg 50tabs 1 tab po bid to 46 Shaheen, 08/03/2010 12HR help loosen 5. Ivet WATSON your 9 secretions. stay well hydrated Nasonex 07/28/2010 - Hx Suspension 50mcg/Ac 1units 1 spray to each 46 Shaheen, 08/03/2010 t nostril once 5. Ivet WATSON daily. rinse 9 mouth post. Calcium/Vit D 09/10/2009 - Hx Tablets 500mg/40 1 po qd Silcoff, 09/17/2011 0Iu Anshul Yuan Anusol-HC 02/20/2009 - Hx Cream 2.5% 45gm apply to 78 Doug 03/02/2009 affected area 7. A. tid for ten 91 [place], days M.D. PT For Right 09/05/2007 - Hx evaluate and 71 Silcoff, Shoulder Pain 09/09/2008 treat, 9. Kwabena, modalities prn, 41 M.D. instruct in hep Temovate Scalp 09/02/2006 - Hx 0.05% 50ml Apply To 70 Silcoff, Application 09/02/2008 Affected Scalp 4. Kwabena Areas bid prn; 8 M.D. Try To Minimize Use; DO Not Put On Face Vit C 09/01/2005 - Hx Tablets 250mg 0tabs 2 po qd Unknown 09/16/2011 Vit E 09/01/2005 - Hx 400Iu 1 po qd Unknown 09/05/2007 Iron 09/01/2005 - Hx 200mg 1 every 3RD day Unknown 09/11/2010 Calcium + D 09/01/2005 - Hx Tablets 600mg 2 po qd Unknown 09/10/2009 Selenium 09/01/2005 - Hx Tablets 200mcg 1 po qd Unknown 05/24/2017 Ambien 09/01/2005 - Hx Tablets 10mg 30tabs 1/2-1 qhs po hs 30 Silcoff, 09/05/2007 prn for sleep 7. Lizbet Yuan M.D. Metoprolol - Hx Tablets ER 25mg 1 tablet by Herman, Succinate ER 09/14/2017 24HR mouth daily MD Dana Medications Administered in Office Medication Date Status Form Strength Qnty SIG Indications Ordering Provider injection, Administered Injection Silcoff, kenalog, 10 mg 014 Anshul Yuan injection, Administered Injection Silcoff, kenalog, 10 mg 012 Anshul Yuan H1N1 Swine Flu Administered Injection Unknown Vaccine 010 Immunizations CPT Code Status Date Vaccine Lot # [id number] Given 04/05/2017 Influenza Vaccine Split Virus Preservative Free Im [id number] Use 48150 Given 04/21/2016 Influenza Virus Vaccine, Quadrivalent, Split, [id number] Preservative Free 87199 Given 07/12/2015 Prevnar 13 [id number] 13455 Given 05/22/2015 Influenza Virus Vaccine, Quadrivalent, Split, [id number] Preservative Free 59094 Given 06/14/2014 Influenza Vaccine Split Virus Preservative Free Im [id number] Use 83557 Given 05/15/2013 Flu, Split Virus 3Yrs [id number] 51648 Given 04/21/2012 Flu, Split Virus 3Yrs [id number] 45778 Given 09/17/2011 Adacel or Boostrix, TDaP [id number] 64864 Given 05/04/2011 Flu, Split Virus 3Yrs [id number] 83632 Given 06/10/2010 Flu, Split Virus 3Yrs [id number] 92436 Given 05/05/2009 Flu, Split Virus 3Yrs [id number] 47899 Given 06/15/2008 Flu, Split Virus 3Yrs [id number] 69860 Given 09/05/2007 Zostavax [id number] 93865 Given 06/10/2007 Flu, Split Virus 3Yrs [id number] 83686 Given 07/05/2006 Flu, Split Virus 3Yrs [id number] 92873 Given 06/08/2005 Flu, Split Virus 3Yrs 69533 Given 08/21/2004 DTP Immunization 64260 Given 05/15/2004 Flu, Split Virus 3Yrs 65804 Given 06/15/2003 Pneumococcal Immunization 31421 Given 09/09/1989 Hep B Immunization, Adult Vital Signs Date Vital Result Comment 11/28/2017 BP Systolic 122 mmHg BP Diastolic 62 mmHg Heart Rate 84 /min reg Respiratory Rate 12 /min not laboured Height 61 inches 5'1" Weight 117.00 lb BMI (Body Mass Index) 22.1 kg/m2 09/14/2017 BP Systolic 120 mmHg BP Diastolic 76 mmHg Heart Rate 84 /min reg Body Temperature 97.5 F Weight 116.00 lb 05/24/2017 BP Systolic 116 mmHg BP Diastolic 54 mmHg Weight 113.00 lb 05/06/2017 BP Systolic 112 mmHg BP Diastolic 64 mmHg Respiratory Rate 12 /min not laboured Body Temperature 97.8 F 04/05/2017 BP Systolic 120 mmHg BP Diastolic 70 mmHg Height 61 inches 5'1" Weight 113.00 lb BMI (Body Mass Index) 21.3 kg/m2 01/28/2017 BP Systolic 132 mmHg BP Diastolic 68 mmHg Weight 112.00 lb 11/22/2016 BP Systolic 122 mmHg BP Diastolic 62 mmHg Heart Rate 92 /min irreg irreg Respiratory Rate 12 /min not laboured Height 61.5 inches 5'1.50" Weight 111.00 lb BMI (Body Mass Index) 20.6 kg/m2 10/29/2016 BP Systolic 120 mmHg BP Diastolic 62 mmHg BP Systolic Recheck 134 mmHg R arm sitting BP Diastolic Recheck 68 mmHg R arm sitting Heart Rate 76 /min reg Respiratory Rate 16 /min not laboured Weight 118.00 lb With shoes 10/13/2016 BP Systolic 138 mmHg BP Diastolic 82 mmHg Body Temperature 97.4 F Weight 119.00 lb 08/10/2016 BP Systolic 140 mmHg BP Diastolic 88 mmHg 07/28/2016 BP Systolic 128 mmHg BP Diastolic 65 mmHg Weight 119.00 lb 06/15/2016 BP Systolic 126 mmHg BP Diastolic 64 mmHg Heart Rate 65 /min repeat 70, reg O2 % BldC Oximetry 96 % Height 61.33 inches 5'1.33" Weight 119.00 lb BMI (Body Mass Index) 22.2 kg/m2 02/10/2016 BP Systolic 140 mmHg BP Diastolic 82 mmHg Weight 116.00 lb 11/21/2015 BP Systolic 140 mmHg BP Diastolic 80 mmHg Height 61.50 inches 5'1.50" Weight 117.00 lb BMI (Body Mass Index) 21.7 kg/m2 07/12/2015 BP Systolic 132 mmHg BP Diastolic 66 mmHg Height 61.5 inches 5'1.50" Weight 115.00 lb BMI (Body Mass Index) 21.4 kg/m2 10/08/2014 BP Systolic 122 mmHg BP Diastolic 58 mmHg Height 61.50 inches 5'1.50" Weight 116.00 lb BMI (Body Mass Index) 21.6 kg/m2 07/23/2014 BP Systolic 142 mmHg BP Diastolic 72 mmHg 07/16/2014 BP Systolic 148 mmHg BP Diastolic 84 mmHg O2 % BldC Oximetry 97 % after ambulation:90% Weight 117.00 lb 03/19/2014 BP Systolic 148 mmHg BP Diastolic 78 mmHg Body Temperature 98.2 F Height 61.25 inches 5'1.25" Weight 115.00 lb BMI (Body Mass Index) 21.5 kg/m2 10/02/2013 BP Systolic 128 mmHg BP Diastolic 76 mmHg Heart Rate 72 /min reg Respiratory Rate 12 /min not laboured Height 61.25 inches 5'1.25" Weight 113.00 lb BMI (Body Mass Index) 21.2 kg/m2 09/19/2012 BP Systolic 152 mmHg BP Diastolic 80 mmHg Heart Rate 74 /min Reg Respiratory Rate 12 /min not laboured Height 61.75 inches 5'1.75" Weight 116.00 lb BMI (Body Mass Index) 21.4 kg/m2 08/09/2012 BP Systolic 130 mmHg BP Diastolic 70 mmHg Weight 116.00 lb 07/12/2012 BP Systolic 156 mmHg BP Diastolic 80 mmHg Height 61.50 inches 5'1.50" Weight 117.00 lb BMI (Body Mass Index) 21.7 kg/m2 Last Menstrual Period 0 11/05/2011 BP Systolic 118 mmHg BP Diastolic 68 mmHg Weight 116.00 lb 10/05/2011 BP Systolic 146 mmHg BP Diastolic 76 mmHg Body Temperature 98.5 F 09/17/2011 BP Systolic 130 mmHg BP Diastolic 72 mmHg Height 61.75 inches 5'1.75" Weight 119.00 lb BMI (Body Mass Index) 21.9 kg/m2 10/05/2010 BP Systolic 133 mmHg BP Diastolic 82 mmHg Heart Rate 76 /min Body Temperature 97.4 F 09/14/2010 BP Systolic 112 mmHg BP Diastolic 68 mmHg Heart Rate 68 /min reg Height 61.75 inches 5'1.75" Weight 120.00 lb BMI (Body Mass Index) 22.1 kg/m2 08/03/2010 BP Systolic 102 mmHg BP Diastolic 68 mmHg Heart Rate 72 /min reg Respiratory Rate 14 /min not laboured O2 % BldC Oximetry 95 % Body Temperature 97.4 F Weight 120.00 lb 07/28/2010 BP Systolic 104 mmHg BP Diastolic 66 mmHg Body Temperature 98.6 F Height 61.50 inches 5'1.50" Weight 119.00 lb BMI (Body Mass Index) 22.1 kg/m2 09/10/2009 BP Systolic 130 mmHg BP Diastolic 60 mmHg Height 61.50 inches 5'1.50" Weight 116.00 lb BMI (Body Mass Index) 21.6 kg/m2 Last Menstrual Period 0 02/20/2009 BP Systolic 128 mmHg BP Diastolic 74 mmHg Body Temperature 97.9 F Height 62 inches 5'2" Weight 117.00 lb BMI (Body Mass Index) 21.4 kg/m2 09/10/2008 BP Systolic 148 mmHg BP Diastolic 80 mmHg Heart Rate 60 /min reg Respiratory Rate 12 /min not laboured Height 61.9 inches 5'1.90" Weight 117.00 lb BMI (Body Mass Index) 21.5 kg/m2 Last Menstrual Period 0 09/05/2007 BP Systolic 156 mmHg BP Diastolic 82 mmHg Height 61.25 inches 5'1.25" Weight 118.50 lb BMI (Body Mass Index) 22.2 kg/m2 08/29/2007 BP Systolic 164 mmHg BP Diastolic 80 mmHg Height 62 inches 5'2" Weight 119.00 lb BMI (Body Mass Index) 21.8 kg/m2 09/02/2006 BP Systolic 136 mmHg BP Diastolic 76 mmHg Height 62 inches 5'2" Weight 121.00 lb BMI (Body Mass Index) 22.1 kg/m2 09/01/2005 BP Systolic 138 mmHg BP Diastolic 66 mmHg BP Systolic Recheck 160 mmHg R arm sitting; 158/92 repeat (lying) BP Diastolic Recheck 78 mmHg R arm sitting; 158/92 repeat (lying) Heart Rate 68 /min reg Respiratory Rate 12 /min not laboured Height 62 inches 5'2" Weight 122.00 lb BMI (Body Mass Index) 22.3 kg/m2 08/21/2004 Height 62 inches 5'2" Weight 129.00 lb BMI (Body Mass Index) 23.6 kg/m2 07/29/2004 Height 62 inches 5'2" Weight 129.00 lb BMI (Body Mass Index) 23.6 kg/m2 Results Test Date Test Result H/L Range Note CBC Auto Diff 10/25/2017 White Blood Count 8.1 10^3/uL 3.5-10.8 Red Blood Count 4.21 10^6/uL 4.0-5.4 Hemoglobin 13.3 g/dL 12.0-16.0 Hematocrit 40 % 35-47 Mean Corpuscular Volume 94 fL 80-97 Mean Corpuscular Hemoglobin 32 pg High 27-31 Mean Corpuscular HGB Conc 34 g/dL 31-36 Red Cell Distribution Width 14 % 10.5-15 Platelet Count 223 10^3/uL 150-450 Mean Platelet Volume 10 um3 7.4-10.4 Abs Neutrophils 4.0 10^3/uL 1.5-7.7 Abs Lymphocytes 3.5 10^3/uL 1.0-4.8 Abs Monocytes 0.4 10^3/uL 0-0.8 Abs Eosinophils 0.1 10^3/uL 0-0.6 Abs Basophils 0 10^3/uL 0-0.2 Abs Nucleated RBC 0 10^3/uL Granulocyte % 50.1 % 38-83 Lymphocyte % 42.9 % 25-47 Monocyte % 4.8 % 0-7 Eosinophil % 1.7 % 0-6 Basophil % 0.5 % 0-2 Nucleated Red Blood Cells % 0 Comp Metabolic Panel 10/25/2017 Sodium 138 mmol/L 133-145 Potassium 4.4 mmol/L 3.5-5.0 Chloride 102 mmol/L 101-111 Co2 Carbon Dioxide 28 mmol/L 22-32 Anion Gap 8 mmol/L 2-11 Glucose 138 mg/dL High 70-100 Blood Urea Nitrogen 25 mg/dL High 6-24 Creatinine 0.99 mg/dL High 0.51-0.95 BUN/Creatinine Ratio 25.3 High 8-20 Calcium 9.4 mg/dL 8.6-10.3 Total Protein 6.4 g/dL 6.4-8.9 Albumin 4.0 g/dL 3.2-5.2 Globulin 2.4 g/dL 2-4 Albumin/Globulin Ratio 1.7 1-3 Total Bilirubin 0.50 mg/dL 0.2-1.0 Alkaline Phosphatase 88 U/L 34-104 Alt 18 U/L 7-52 Ast 21 U/L 13-39 Egfr Non- 54.0 >60 Egfr 69.4 >60 1 Laboratory test finding 10/25/2017 Cortisol 17.26 g/dL 2 TSH (Thyroid Stim Horm) 3.96 mcIU/mL 0.34-5.60 3 Basic Metabolic Panel 10/20/2017 Sodium 136 mmol/L 133-145 Potassium 4.7 mmol/L 3.5-5.0 Chloride 101 mmol/L 101-111 Co2 Carbon Dioxide 29 mmol/L 22-32 Anion Gap 6 mmol/L 2-11 Glucose 75 mg/dL 70-100 Blood Urea Nitrogen 22 mg/dL 6-24 Creatinine 1.05 mg/dL High 0.51-0.95 BUN/Creatinine Ratio 21.0 High 8-20 Calcium 9.5 mg/dL 8.6-10.3 Egfr Non- 50.4 >60 Egfr 64.9 >60 4 Basic Metabolic Panel 05/05/2017 Sodium 133 mmol/L 133-145 Potassium 4.3 mmol/L 3.5-5.0 Chloride 99 mmol/L Low 101-111 Co2 Carbon Dioxide 28 mmol/L 22-32 Anion Gap 6 mmol/L 2-11 Glucose 117 mg/dL High 70-100 Blood Urea Nitrogen 23 mg/dL 6-24 Creatinine 0.86 mg/dL 0.51-0.95 BUN/Creatinine Ratio 26.7 High 8-20 Calcium 9.1 mg/dL 8.6-10.3 Egfr Non- 63.5 >60 Egfr 81.7 >60 5 Basic Metabolic Panel 05/05/2017 Sodium 133 mmol/L 133-145 Potassium 4.3 mmol/L 3.5-5.0 Chloride 99 mmol/L Low 101-111 Co2 Carbon Dioxide 28 mmol/L 22-32 Anion Gap 6 mmol/L 2-11 Glucose 117 mg/dL High 70-100 Blood Urea Nitrogen 23 mg/dL 6-24 Creatinine 0.86 mg/dL 0.51-0.95 BUN/Creatinine Ratio 26.7 High 8-20 Calcium 9.1 mg/dL 8.6-10.3 Egfr Non- 63.5 >60 Egfr 81.7 >60 6 Comp Metabolic Panel 12/24/2016 Sodium 135 mmol/L 133-145 Potassium 4.7 mmol/L 3.5-5.0 Chloride 100 mmol/L Low 101-111 Co2 Carbon Dioxide 29 mmol/L 22-32 Anion Gap 6 mmol/L 2-11 Glucose 75 mg/dL 70-100 Blood Urea Nitrogen 19 mg/dL 6-24 Creatinine 0.95 mg/dL 0.51-0.95 BUN/Creatinine Ratio 20.0 8-20 Calcium 9.3 mg/dL 8.6-10.3 Total Protein 6.2 g/dL Low 6.4-8.9 Albumin 3.7 g/dL 3.2-5.2 Globulin 2.5 g/dL 2-4 Albumin/Globulin Ratio 1.5 1-3 Total Bilirubin 0.40 mg/dL 0.2-1.0 Alkaline Phosphatase 81 U/L 34-104 Alt 33 U/L 7-52 Ast 28 U/L 13-39 Egfr Non- 56.6 >60 Egfr 72.8 >60 7 Laboratory test finding 12/24/2016 Magnesium 2.2 mg/dL 1.9-2.7 C Reactive Protein 8.26 mg/L High < 5.00 8 Erythrocyte Sed Rate 24 mm/Hr 0-40 Laboratory test finding 12/02/2016 CRP High Sensitivity 49.36 mg/L 9 CBC Auto Diff 12/02/2016 White Blood Count 10.8 10^3/uL 3.5-10.8 Red Blood Count 4.00 10^6/uL 4.0-5.4 Hemoglobin 12.0 g/dL 12.0-16.0 Hematocrit 37 % 35-47 Mean Corpuscular Volume 92 fL 80-97 Mean Corpuscular Hemoglobin 30 pg 27-31 Mean Corpuscular HGB Conc 32 g/dL 31-36 Red Cell Distribution Width 14 % 10.5-15 Platelet Count 339 10^3/uL 150-450 Mean Platelet Volume 9 um3 7.4-10.4 Abs Neutrophils 7.5 10^3/uL 1.5-7.7 Abs Lymphocytes 2.4 10^3/uL 1.0-4.8 Abs Monocytes 0.7 10^3/uL 0-0.8 Abs Eosinophils 0 10^3/uL 0-0.6 Abs Basophils 0.1 10^3/uL 0-0.2 Abs Nucleated RBC 0 10^3/uL Granulocyte % 69.8 % 38-83 Lymphocyte % 22.4 % Low 25-47 Monocyte % 6.4 % 1-9 Eosinophil % 0.3 % 0-6 Basophil % 1.1 % 0-2 Nucleated Red Blood Cells % 0 Laboratory test finding 12/02/2016 Erythrocyte Sed Rate 53 mm/Hr High 0- 40 Comp Metabolic Panel 11/22/2016 Sodium 133 mmol/L 133-145 Potassium 4.6 mmol/L 3.5-5.0 Chloride 98 mmol/L Low 101-111 Co2 Carbon Dioxide 27 mmol/L 22-32 Anion Gap 8 mmol/L 2-11 Glucose 86 mg/dL 70-100 Blood Urea Nitrogen 28 mg/dL High 6-24 Creatinine 0.85 mg/dL 0.51-0.95 BUN/Creatinine Ratio 32.9 High 8-20 Calcium 9.3 mg/dL 8.6-10.3 Total Protein 6.5 g/dL 6.4-8.9 Albumin 3.5 g/dL 3.2-5.2 Globulin 3.0 g/dL 2-4 Albumin/Globulin Ratio 1.2 1-3 Total Bilirubin 0.40 mg/dL 0.2-1.0 Alkaline Phosphatase 85 U/L 34-104 Alt 12 U/L 7-52 Ast 15 U/L 13-39 Egfr Non- 64.5 >60 Egfr 83.0 >60 10 Laboratory test finding 11/22/2016 TSH (Thyroid Stim 1.85 mcIU/mL 0.34- 5.60 Horm) CBC Auto Diff 11/22/2016 White Blood Count 11.3 10^3/uL High 3.5-10.8 Red Blood Count 3.79 10^6/uL Low 4.0-5.4 Hemoglobin 11.4 g/dL Low 12.0-16.0 Hematocrit 35 % 35-47 Mean Corpuscular Volume 92 fL 80-97 Mean Corpuscular Hemoglobin 30 pg 27-31 Mean Corpuscular HGB Conc 33 g/dL 31-36 Red Cell Distribution Width 14 % 10.5-15 Platelet Count 386 10^3/uL 150-450 Mean Platelet Volume 9 um3 7.4-10.4 Abs Neutrophils 8.0 10^3/uL High 1.5-7.7 Abs Lymphocytes 2.3 10^3/uL 1.0-4.8 Abs Monocytes 0.8 10^3/uL 0-0.8 Abs Eosinophils 0.1 10^3/uL 0-0.6 Abs Basophils 0.1 10^3/uL 0-0.2 Abs Nucleated RBC 0.01 10^3/uL Granulocyte % 70.9 % 38-83 Lymphocyte % 20.3 % Low 25-47 Monocyte % 7.0 % 1-9 Eosinophil % 0.7 % 0-6 Basophil % 1.1 % 0-2 Nucleated Red Blood Cells % 0.1 Laboratory test 11/22/2016 B-Type Natriuretic 268 pg/mL High 11 finding Peptide BNP CBC Auto Diff 10/23/2016 White Blood Count 16.2 10^3/uL High 3.5-10.8 Red Blood Count 3.82 10^6/uL Low 4.0-5.4 Hemoglobin 11.9 g/dL Low 12.0-16.0 Hematocrit 36 % 35-47 Mean Corpuscular Volume 95 fL 80-97 Mean Corpuscular Hemoglobin 31 pg 27-31 Mean Corpuscular HGB Conc 33 g/dL 31-36 Red Cell Distribution Width 14 % 10.5-15 Platelet Count 169 10^3/uL 150-450 Mean Platelet Volume 9 um3 7.4-10.4 Abs Neutrophils 13.5 10^3/uL High 1.5-7.7 Abs Lymphocytes 1.4 10^3/uL 1.0-4.8 Abs Monocytes 0.9 10^3/uL High 0-0.8 Abs Eosinophils 0 10^3/uL 0-0.6 Abs Basophils 0.3 10^3/uL High 0-0.2 Abs Nucleated RBC 0.01 10^3/uL Granulocyte % 83.8 % High 38-83 Lymphocyte % 8.7 % Low 25-47 Monocyte % 5.6 % 1-9 Eosinophil % 0.3 % 0-6 Basophil % 1.6 % 0-2 Nucleated Red Blood Cells % 0 CKMB 10/23/2016 CKMB ng/mL 3.0 ng/mL 0.6-6.3 Inr/Protime 10/23/2016 Inr 1.26 High 0.89-1.11 Laboratory test finding 10/23/2016 Partial Thrombo Time 27.0 seconds 26.0 -36.3 PTT D Dimer Quantitative 618 ng/mL High Less Than 230 12 B-Type Natriuretic Peptide BNP 478 pg/mL High 13 Comp Metabolic Panel 10/23/2016 Sodium 130 mmol/L Low 133-145 Potassium 4.4 mmol/L 3.5-5.0 Chloride 98 mmol/L Low 101-111 Co2 Carbon Dioxide 25 mmol/L 22-32 Anion Gap 7 mmol/L 2-11 Glucose 126 mg/dL High 70-100 Blood Urea Nitrogen 25 mg/dL High 6-24 Creatinine 0.81 mg/dL 0.51-0.95 BUN/Creatinine Ratio 30.9 High 8-20 Calcium 9.1 mg/dL 8.6-10.3 Total Protein 6.6 g/dL 6.4-8.9 Albumin 3.7 g/dL 3.2-5.2 Globulin 2.9 g/dL 2-4 Albumin/Globulin Ratio 1.3 1-3 Total Bilirubin 0.70 mg/dL 0.2-1.0 Alkaline Phosphatase 73 U/L 34-104 Alt 51 U/L 7-52 Ast 46 U/L High 13-39 Egfr Non- 68.2 >60 Egfr 87.7 >60 14 Laboratory test finding 10/23/2016 Troponin-I (TnI) 0.49 ng/mL High < 0.04 15 Creatine Kinase(CK) 31 U/L 10-223 Basic Metabolic Panel 08/19/2016 Sodium 135 mmol/L 133-145 Potassium 3.8 mmol/L 3.5-5.0 Chloride 100 mmol/L Low 101-111 Co2 Carbon Dioxide 27 mmol/L 22-32 Anion Gap 8 mmol/L 2-11 Glucose 97 mg/dL 70-100 Blood Urea Nitrogen 16 mg/dL 6-24 Creatinine 0.95 mg/dL 0.51-0.95 BUN/Creatinine Ratio 16.8 8-20 Calcium 9.2 mg/dL 8.6-10.3 Egfr Non- 56.7 >60 Egfr 73.0 >60 16 CBC Auto Diff 08/19/2016 White Blood Count 8.7 10^3/uL 3.5-10.8 Red Blood Count 4.22 10^6/uL 4.0-5.4 Hemoglobin 13.6 g/dL 12.0-16.0 Hematocrit 40 % 35-47 Mean Corpuscular Volume 95 fL 80-97 Mean Corpuscular Hemoglobin 32 pg High 27-31 Mean Corpuscular HGB Conc 34 g/dL 31-36 Red Cell Distribution Width 14 % 10.5-15 Platelet Count 206 10^3/uL 150-450 Mean Platelet Volume 9 um3 7.4-10.4 Abs Neutrophils 6.3 10^3/uL 1.5-7.7 Abs Lymphocytes 1.7 10^3/uL 1.0-4.8 Abs Monocytes 0.6 10^3/uL 0-0.8 Abs Eosinophils 0 10^3/uL 0-0.6 Abs Basophils 0.1 10^3/uL 0-0.2 Abs Nucleated RBC 0 10^3/uL Granulocyte % 72.7 % 38-83 Lymphocyte % 19.6 % Low 25-47 Monocyte % 6.9 % 1-9 Eosinophil % 0.2 % 0-6 Basophil % 0.6 % 0-2 Nucleated Red Blood Cells % 0 Inr/Protime 08/19/2016 Inr 0.95 0.89-1.11 Laboratory test 08/19/2016 Partial Thrombo Time 26.1 seconds 26.0-36.3 finding PTT Lipid Profile 10/01/2014 Triglycerides 63 mg/dL 17, 18 (Trig/Chol/HDL) Cholesterol 259 mg/dL 17, 19 HDL Cholesterol 78.2 mg/dL 17, 20 LDL Cholesterol 168 mg/dL 17, 21 Laboratory test 07/23/2014 Fluid Crystals None Seen 22, 23 finding Laboratory test 07/16/2014 D Dimer Quantitative < 200 Less Than 24 finding ng/mL 230 CBC Auto Diff 07/16/2014 White Blood Count 7.5 10^3/uL 4.8-10.8 Red Blood Count 4.10 10^6/uL 4.0-5.4 Hemoglobin 13.3 g/dL 12.0-16.0 Hematocrit 39 % 35-47 Mean Corpuscular Volume 96 fL 80-97 Mean Corpuscular Hemoglobin 33 pg High 27-31 Mean Corpuscular HGB Conc 34 g/dL 31-36 Red Cell Distribution Width 14 % 10.5-15 Platelet Count 249 10^3/uL 150-450 Mean Platelet Volume 9 um3 7.4-10.4 Abs Neutrophils 4.1 10^3/uL 1.5-7.7 Abs Lymphocytes 2.5 10^3/uL 1.0-4.8 Abs Monocytes 0.5 10^3/uL 0-0.8 Abs Eosinophils 0.2 10^3/uL 0-0.6 Abs Basophils 0.1 10^3/uL 0-0.2 Abs Nucleated RBC 0 10^3/uL Granulocyte % 55.5 % 38-83 Lymphocyte % 34.2 % 25-47 Monocyte % 6.7 % 1-9 Eosinophil % 2.5 % 0-6 Basophil % 1.1 % 0-2 Nucleated Red Blood Cells % 0 Laboratory test finding 10/07/2011 Folic Acid > 25.6 NG/ML See Below 25 Glucose 89 mg/dL 70-100 C Reactive Protein < 0.5 mg/dL Less Than 0.5 CBC Auto Diff 10/07/2011 White Blood Count 6.0 CUMM 4.8-10.8 Red Cell Count 4.10 CUMM Low 4.2-5.4 Hemoglobin 13.6 g/dL 12.0-16.0 Hematocrit 39 % 35-47 Mean Corpuscular Volume 94 um3 79-97 Mean Corpuscular Hemoglob 33 pg High 27-31 Mean Corpuscular HGB Cone 35 g/dL 32-36 Redcell Distribution WDTH 14 % 10.5-15 Platelet Count 191 CUMM 150-450 Mean Platelet Volume 10.1 um3 7.4-10.4 Gran % 58.9 % 38-83 Lymph % 31.8 % 25-47 Mononuclear % 6.3 % 1-9 Eosinophil % 2.4 % 0-6 Basophil % 0.6 % 0-2 Abs Lymphs 1.9 1.0-4.8 Abs Mononuclear 0.4 0-0.8 Absolute Neutrophil Count 3.5 1.5-7.7 Abs Eosinophils 0.1 0-0.6 Abs Basophils 0 0-0.2 Laboratory test finding 10/07/2011 TSH 1.58 MIU/ML 0.34-5.60 Vitamin B12 559 pg/mL 180-914 Vitamin B6 15 g/L 5-50 26 Lipid Profile (Trig/Chol/HDL) 10/07/2011 Triglyceride 58 mg/dL 40-200 Cholesterol 266 mg/dL High Less Than 200 27 High Density Lipoprotein 82 mg/dL High 40-60 28 Cholesterol/HDL Ratio 3.24 AVERAGE 1-4.44 Low Density Lipoprotein 172 mg/dL High Less Than 100 29 Urine Micro Inhouse 09/10/2009 Urine Microscopic Inhouse occ rbc Ua Inhouse 09/10/2009 Ua Glucose - Ua Bilirubin - Ua Ketones - Ua Specific [place] 1.030 Ua Blood sml Ua PH 5.0 Ua Protein - Ua Urobilinogen - Ua Nitrite - Ua Leukocytes - Culture Urine Inhouse 09/10/2009 Colonies neg Laboratory test finding 02/24/2009 E.Coli 0157:H7 Culture neg 30 Urine Micro Inhouse 02/20/2009 Urine Microscopic Inhouse see result note 31 Ua Inhouse 02/20/2009 Ua Glucose - 31 Ua Bilirubin - 31 Ua Ketones - 31 Ua Specific [place] 1.025 31 Ua Blood tr 31 Ua PH 5.0 31 Ua Protein - 31 Ua Urobilinogen - 31 Ua Nitrite - 31 Ua Leukocytes - 31 Comp Metabolic Panel 02/20/2009 Sodium 136 mmol/L 135-145 Potassium 4.3 mmol/L 3.5-5.0 Chloride 101 mmol/L 101-111 Co2 (Carbon Dioxide) 26.0 mmol/L 22-32 Anion Gap 9.0 mmol/L 2-11 32 Glucose 108 mg/dL High 70-100 33 BUN 17 mg/dL 6-24 Creatinine 1.00 mg/dL 0.50-1.40 One Over Creatinine 1.00 BUN/Creatinine Ratio 17.0 8-20 Calcium 8.8 mg/dL 8.1-9.9 34 Total Protein 5.3 GM/DL Low 6.2-8.1 Albumin 3.0 GM/DL Low 3.2-5.2 Globulin 2.3 GM/DL 2-4 Albumin/Globulin Ratio 1.3 1-3 Bilirubin Total 0.5 mg/dL 0.4-1.5 35 Alkaline Phosphatase 77 U/L 30-110 Alt (SGPT) 12 U/L Low 14-54 Ast (Sgot) 19 U/L 12-42 eGFR Non- 57.9 > 60 eGFR 70.1 > 60 36 CBC With Manual Diff 02/20/2009 White Blood Count 9.2 CUMM 4.8-10.8 Red Cell Count 3.37 CUMM Low 4.2-5.4 Hemoglobin 11.3 g/dL Low 12.0-16.0 Hematocrit 33 % Low 35-47 Mean Corpuscular Volume 97 um3 79-97 Mean Corpuscular Hemoglob 33 pg High 27-31 Mean Corpuscular HGB Cone 34 g/dL 32-36 Redcell Distribution WDTH 13 % 10.5-15 Platelet Count 216 CUMM 150-450 Mean Platelet Volume 9.7 um3 7.4-10.4 Polysegmented Neutrophil 81 % 38-83 Band Neutrophil 3 % 0-8 Lymphocyte 10 % Low 25-47 Monocyte 2 % 0-13 Eosenophil 3 % 0-6 Atypical Lymph 1 % 0-6 Absolute Neutrophil Count 7.7 RBC Morphology NORMAL Lipid Profile 09/07/2007 Cholesterol/HDL Ratio 3.06 AVERAGE 1-4.44 (Trig/Chol/HDL) Cholesterol 242 mg/dL High Less Than 200 37 Triglyceride 43 mg/dL 40-200 High Density Lipoprotein 79 mg/dL High 40-60 38 Low Density Lipoprotein 154 mg/dL High Less Than 100 39 Basic Metabolic Panel 09/07/2007 One Over Creatinine 0.90 Anion Gap 6.0 mmol/L 2-11 40 BUN 20 mg/dL 6-24 Calcium 9.0 mg/dL 8.7-10.2 Chloride 102 mmol/L 101-111 Co2 (Carbon Dioxide) 29.0 mmol/L 22-32 Glucose 85 mg/dL 70-105 Potassium 4.4 mmol/L 3.5-5.0 Sodium 137 mmol/L 135-145 BUN/Creatinine Ratio 18.2 8-20 Creatinine 1.1 mg/dL 0.5-1.4 CBC With Electronic Diff 09/07/2007 White Blood Count 6.2 CUMM 4.8-10.8 Abs Basophils 0 0-0.2 Abs Eosinophils 0.1 0-0.6 Absolute Neutrophil Count 3.0 1.5-7.7 Abs Lymphs 2.6 1.0-4.8 Abs Mononuclear 0.4 0-0.8 Basophil % 0.5 % 0-2 Hematocrit 41 % 35-47 Hemoglobin 13.9 g/dL 12.0-16.0 Eosinophil % 1.7 % 0-6 Gran % 49.0 % 38-83 Lymph % 41.8 % 20-45 Mean Corpuscular HGB Cone 34 g/dL 32-36 Mean Corpuscular Hemoglob 33 pg High 27-31 Mean Corpuscular Volume 98 um3 High 79-97 Mean Platelet Volume 10.3 um3 7.4-10.4 Mononuclear % 7.0 % 1-9 Platelet Count 221 CUMM 150-450 Red Cell Count 4.21 CUMM 4.2-5.4 Redcell Distribution WDTH 14 % 10.5-15 Xray 08/29/2007 X-Ray, Cervical Spine wnl Complete 7 View Lipid Profile 04/27/2005 Cholesterol/HDL Ratio 3.54 AVERAGE 1-4.44 (Trig/Chol/HDL) Cholesterol 262 mg/dL High Less Than 200 41 Triglyceride 94 mg/dL 40-200 High Density Lipoprotein 74 mg/dL High 40-60 42 Low Density Lipoprotein 169 mg/dL High Less Than 100 43 Lipid Profile (Trig/Chol/HDL) 07/30/2004 Cholesterol 238 mg/dL High Less Than 200 44 Triglyceride 54 mg/dL 40-200 High Density Lipoprotein 84 mg/dL High 40-60 45 Low Density Lipoprotein 143 mg/dL High Less Than 100 46 Cholesterol/HDL Ratio 2.83 AVERAGE 1-4.44 Laboratory test finding 07/30/2004 TSH 2.89 MIU/ML 0.34-5.60 Comp Metabolic Panel 07/30/2004 Anion Gap 5.0 mmol/L 2-11 47 Albumin/Globulin Ratio 1.4 1-3 Albumin 3.6 GM/DL 3.2-5.2 Alkaline Phosphatase 73 U/L 30-110 Alt (SGPT) 19 U/L 14-54 Ast (Sgot) 25 U/L 12-42 BUN 17 mg/dL 6-24 Calcium 9.1 mg/dL 8.7-10.2 Chloride 106 mmol/L 101-111 Co2 (Carbon Dioxide) 28.0 mmol/L 22-32 Creatinine 1.0 mg/dL 0.5-1.4 Globulin 2.5 GM/DL 2-4 Glucose 95 mg/dL 70-105 Potassium 4.5 mmol/L 3.5-5.0 Sodium 139 mmol/L 135-145 Bilirubin Total 0.7 mg/dL 0.4-1.5 Total Protein 6.1 GM/DL Low 6.2-8.1 BUN/Creatinine Ratio 17.0 8-20 CBC With Electronic Diff 07/30/2004 White Blood Count 6.9 CUMM 4.8-10.8 Abs Basophils 0 0-0.2 Abs Eosinophils 0.1 0-0.6 Abs Grans 3.4 1.5-7.7 Abs Lymphs 2.8 1.0-4.8 Abs Mononuclear 0.5 0-0.8 Basophil % 0.4 % 0-2 Hematocrit 35 % 35-47 Hemoglobin 11.8 g/dL Low 12.0-16.0 Eosinophil % 1.9 % 0-6 Gran % 49.7 % 38-83 Lymph % 41.1 % 20-45 Mean Corpuscular HGB Cone 34 g/dL 32-36 Mean Corpuscular Hemoglob 32 pg High 27-31 Mean Corpuscular Volume 94 um3 79-97 Mean Platelet Volume 10.3 um3 7.4-10.4 Mononuclear % 6.9 % 1-9 Platelet Count 263 CUMM 150-450 Red Cell Count 3.72 CUMM Low 4.2-5.4 Redcell Distribution WDTH 16 % High 10.5-15 1 Because ethnic data is not always readily available, this report includes an eGFR for both -Americans and non- Americans. The National Kidney Disease Education Program (NKDEP) does not endorse the use of the MDRD equation for patients that are not between the ages of 18 and 70, are , have extremes of body size, muscle mass, or nutritional status, or are non- or non-. According to the National Kidney Foundation, irrespective of diagnosis, the stage of the disease is based on the level of kidney function: Stage Description GFR(mL/min/1.73 m(2)) 1 Kidney damage with normal or decreased GFR 90 2 Kidney damage with mild decrease in GFR 60-89 3 Moderate decrease in GFR 30-59 4 Severe decrease in GFR 15-29 5 Kidney failure <15 (or dialysis) 2 AM 8.7-22.4 PM <10 3 needs to be drawn between 7-8am 4 Because ethnic data is not always readily available, this report includes an eGFR for both -Americans and non- Americans. The National Kidney Disease Education Program (NKDEP) does not endorse the use of the MDRD equation for patients that are not between the ages of 18 and 70, are , have extremes of body size, muscle mass, or nutritional status, or are non- or non-. According to the National Kidney Foundation, irrespective of diagnosis, the stage of the disease is based on the level of kidney function: Stage Description GFR(mL/min/1.73 m(2)) 1 Kidney damage with normal or decreased GFR 90 2 Kidney damage with mild decrease in GFR 60-89 3 Moderate decrease in GFR 30-59 4 Severe decrease in GFR 15-29 5 Kidney failure <15 (or dialysis) 5 Because ethnic data is not always readily available, this report includes an eGFR for both -Americans and non- Americans. The National Kidney Disease Education Program (NKDEP) does not endorse the use of the MDRD equation for patients that are not between the ages of 18 and 70, are , have extremes of body size, muscle mass, or nutritional status, or are non- or non-. According to the National Kidney Foundation, irrespective of diagnosis, the stage of the disease is based on the level of kidney function: Stage Description GFR(mL/min/1.73 m(2)) 1 Kidney damage with normal or decreased GFR 90 2 Kidney damage with mild decrease in GFR 60-89 3 Moderate decrease in GFR 30-59 4 Severe decrease in GFR 15-29 5 Kidney failure <15 (or dialysis) 6 Because ethnic data is not always readily available, this report includes an eGFR for both -Americans and non- Americans. The National Kidney Disease Education Program (NKDEP) does not endorse the use of the MDRD equation for patients that are not between the ages of 18 and 70, are , have extremes of body size, muscle mass, or nutritional status, or are non- or non-. According to the National Kidney Foundation, irrespective of diagnosis, the stage of the disease is based on the level of kidney function: Stage Description GFR(mL/min/1.73 m(2)) 1 Kidney damage with normal or decreased GFR 90 2 Kidney damage with mild decrease in GFR 60-89 3 Moderate decrease in GFR 30-59 4 Severe decrease in GFR 15-29 5 Kidney failure <15 (or dialysis) 7 Because ethnic data is not always readily available, this report includes an eGFR for both -Americans and non- Americans. The National Kidney Disease Education Program (NKDEP) does not endorse the use of the MDRD equation for patients that are not between the ages of 18 and 70, are , have extremes of body size, muscle mass, or nutritional status, or are non- or non-. According to the National Kidney Foundation, irrespective of diagnosis, the stage of the disease is based on the level of kidney function: Stage Description GFR(mL/min/1.73 m(2)) 1 Kidney damage with normal or decreased GFR 90 2 Kidney damage with mild decrease in GFR 60-89 3 Moderate decrease in GFR 30-59 4 Severe decrease in GFR 15-29 5 Kidney failure <15 (or dialysis) 8 Acute inflammation: >10.00 9 Low risk: <1.00 Average risk: 1.00-3.00 High risk: >3.00 10 Because ethnic data is not always readily available, this report includes an eGFR for both -Americans and non- Americans. The National Kidney Disease Education Program (NKDEP) does not endorse the use of the MDRD equation for patients that are not between the ages of 18 and 70, are , have extremes of body size, muscle mass, or nutritional status, or are non- or non-. According to the National Kidney Foundation, irrespective of diagnosis, the stage of the disease is based on the level of kidney function: Stage Description GFR(mL/min/1.73 m(2)) 1 Kidney damage with normal or decreased GFR 90 2 Kidney damage with mild decrease in GFR 60-89 3 Moderate decrease in GFR 30-59 4 Severe decrease in GFR 15-29 5 Kidney failure <15 (or dialysis) 11 >100 to <200 pg/mL: likely compensated congestive heart failure (CHF) 200 to 400 pg/mL: likely moderate CHF >400 pg/mL: likely moderate to severe CHF 12 Please note: The following may produce a false positive D Dimer test: - Rheumatoid factor greater than 60 IU/ml - Plasma hemoglobin greater than 0.05 gm/dl - Bilirubin greater than 50 mg/dl - Lipids greater than 1000 mg/dl - FDP greater than 20 ug/ml 13 >100 to <200 pg/mL: likely compensated congestive heart failure (CHF) 200 to 400 pg/mL: likely moderate CHF >400 pg/mL: likely moderate to severe CHF 14 Because ethnic data is not always readily available, this report includes an eGFR for both -Americans and non- Americans. The National Kidney Disease Education Program (NKDEP) does not endorse the use of the MDRD equation for patients that are not between the ages of 18 and 70, are , have extremes of body size, muscle mass, or nutritional status, or are non- or non-. According to the National Kidney Foundation, irrespective of diagnosis, the stage of the disease is based on the level of kidney function: Stage Description GFR(mL/min/1.73 m(2)) 1 Kidney damage with normal or decreased GFR 90 2 Kidney damage with mild decrease in GFR 60-89 3 Moderate decrease in GFR 30-59 4 Severe decrease in GFR 15-29 5 Kidney failure <15 (or dialysis) 15 Result TnIDx:0.49 Called to [id number] at: 02:49:02 by:[id number] Read back by: [id number] 99th percentile=0.04 ng/mL Troponin results at [facility] and [facility] are not interchangeable. 16 Because ethnic data is not always readily available, this report includes an eGFR for both -Americans and non- Americans. The National Kidney Disease Education Program (NKDEP) does not endorse the use of the MDRD equation for patients that are not between the ages of 18 and 70, are , have extremes of body size, muscle mass, or nutritional status, or are non- or non-. According to the National Kidney Foundation, irrespective of diagnosis, the stage of the disease is based on the level of kidney function: Stage Description GFR(mL/min/1.73 m(2)) 1 Kidney damage with normal or decreased GFR 90 2 Kidney damage with mild decrease in GFR 60-89 3 Moderate decrease in GFR 30-59 4 Severe decrease in GFR 15-29 5 Kidney failure <15 (or dialysis) 17 PT IS NOT FASTING SHE HAD EGGS, TOAST, ORANGE JUICE, AND~MORE FOR BREAKFAST 18 Desirable <150 Borderline high 150-199 High 200-499 Very High >500 19 Desirable <200 Borderline high 200-239 High >239 20 Low <40 Desirable: 40-60 High: >60 21 Desirable <100 Near Optimal 100-129 Borderline high 130-159 High 160-189 Very High >189 22 right knee fluid 23 right knee fluid Synovial (Joint) Fluid 24 Please note: The following may produce a false positive D Dimer test: - Rheumatoid factor greater than 60 IU/ml - Plasma hemoglobin greater than 0.05 gm/dl - Bilirubin greater than 50 mg/dl - Lipids greater than 1000 mg/dl - FDP greater than 20 ug/ml 25 Please note: New reference range, effective 08/05/11 NORMAL REFERENCE RANGE: GREATER THAN 4.1 NG/ML 26 Test Performed by: [facility] [place] [address] [employer]eting Machine Operator Automatic: Dana Carrasco, Ph.D. 27 CHOLESTEROL INTERPRETATION: Desirable: Less than 200 MG/DL Borderline-High Risk: 200-239 MG/DL High-Risk: 240 MG/DL and over 28 HDL INTERPRETATION: Undesirable: High Risk: Less than 40 MG/DL Desirable: Low Risk: Greater than 60 MG/DL 29 LDL INTERPRETATION: Low Risk Optimal Level: LDL Less than 100 MG/DL Near or Above Optimal: LDL 100-129 MG/DL Borderline High Risk: LDL 130-159 MG/DL High Risk: LDL 160-189 MG/DL Very High Risk: LDL Greater than 189 MG/DL 30 NO GROWTH OF E COLI 0157:H7 31 epi lrg and sludgy looking, 3-8 rbc, few renal cells 32 Anion gap measurement may be of limited value in the presence of any alkalosis, especially in a combined acid base disorder. . 33 Note change in reference range as of 04/04/08. The change was based on recommendations from the [place] [employer]. 34 Please note change in reference range effective 08 . 35 A metabolite of Naproxen, O-desmethylnaproxen, has been shown to interfere with the Jendrassik-Song method for measuring total bilirubin. Samples from patients who have taken Naproxen have shown spurious elevation in total bilirubin levels. 36 Because ethnic data is not always readily available, this report includes an eGFR for both -Americans and non- Americans. The National Kidney Disease Education Program (NKDEP) does not endorse the use of the MDRD equation for patients that are not between the ages of 18 and 70, are , have extremes of body size, muscle mass, or nutritional status, or are non- or non-. According to the National Kidney Foundation, irrespective of diagnosis, the stage of the disease is based on the level of kidney function: Stage Description GFR(mL/min/1.73 m(2)) 1 Kidney damage with normal or decreased GFR 90 2 Kidney damage with mild decrease in GFR 60-89 3 Moderate decrease in GFR 30-59 4 Severe decrease in GFR 15-29 5 Kidney failure <15 (or dialysis) 37 Classification: High . 38 Classification: High . 39 CALCULATED LDL APPROXIMATES THE VALUE OF A DIRECT LDL MEASUREMENT. Classification: Borderline High . 40 Anion gap measurement may be of limited value in the presence of any alkalosis, especially in a combined acid base disorder. . 41 Classification: High . 42 Classification: High . 43 CALCULATED LDL APPROXIMATES THE VALUE OF A DIRECT LDL MEASUREMENT. Classification: High . 44 Classification: Borderline High . 45 Classification: High . 46 CALCULATED LDL APPROXIMATES THE VALUE OF A DIRECT LDL MEASUREMENT. Classification: Borderline High . 47 Anion gap measurement may be of limited value in the presence of any alkalosis, especially in a combined acid base disorder. . Procedures Date CPT Code Description Status Comment 05/15/2017 Mammogram Completed 05/2017: benign (done through [facility]) 11/28/17: Discussed mammo screening >age 75; pt decided to have q2yr mammos 11/22/2016 30726 Dexa Bone Density Study One Or Completed More Sites Axial Skeleton 11/22/2016 09746 Remove Impact Cerumen Completed Irrigation/Lavage Unilateral 10/08/2014 44495 Remove Impact Cerumen Requiring Completed Instrument, Unilateral 07/23/201473043 Inject/Drain Joint/Bursa Major Completed 07/16/2014 45208 X-Ray Chest Two Views Completed 07/16/2014 26522 Oximetry, Multiple Completed Determinations (Eg, During Exercise) 07/16/2014 86132 X-Ray Knee,Ap&Lateral Completed Oblique Views 07/16/2014 06727 Electrocardiogram Complete Completed 08/09/201279389 Inject/Drain Joint/Bursa Major Completed 01/13/2011 Bone Mineral Density Test Completed 11/29: T +0.9 L-spine, -1.3 L fem neck (-1.1 L tot hip), -1.1 R fem neck (-1.4 R tot hip); FRAX risk /2.5% (P: repeat 5+ yrs) 01/23: T -1.1 L hip fem neck, -1.1 R hip, +0.1 L-spine 04/22: T -1.78 fem neck, +0.05 L spine 04/20: T score -1.66 fem neck (corresponding to a Z score of + 0.52), and T + 0.14 L-spine. 10/05/2010 02799 Remove Impact Cerumen Requiring Completed Instrument, Unilateral 08/03/2010 36870 Oximetry, Single Completed 12/13/2009 0 Payment Completed 09/10/2009 79954 Remove Impact Cerumen Requiring Completed Instrument, Unilateral 03/28/2009 0 Payment Completed 02/20/2009 23022 Anoscopy Diagnostic Completed 09/10/2008 00088 Electrocardiogram Complete Completed 10/11/2007 0 Payment Completed 08/30/2007 45755 C-Spine, Complete, Incl Obl, FL+ Completed 08/29/2007 32873 C-Spine, Complete, Incl Obl, FL+ Completed 08/29/2007 41045 C-Spine, Complete, Incl Obl, FL+ Completed 10/28/2006 0 Payment Completed 11/18/2005 0 Payment Completed 09/01/2005 42282 Remove Impact Cerumen Requiring Completed Instrument, Unilateral 04/15/2005 Colonoscopy Completed normal 10/19/2004 0 Payment Completed 09/12/2004 0 Payment Completed Encounters Type Date Location Provider CPT E/M Dx Office Visit 11/28/2017 9:45a Main Office Kwabena Garcia M.D. 24536 Z00.00 M65.342 F51.01 I48.92 Z23 Office Visit 09/14/2017 11:00a Main Office Kwabena Garcia M.D. 98108 R53.83 M54.17 A69.20 Office Visit 05/24/2017 2:00p Main Office Kwabena Garcia M.D. 09361 I48.92 I34.0 I36.1 R21 Office Visit 05/06/2017 1:45p Main Office Kwabena Garcia M.D. 83382 A69.20 Office Visit 04/05/2017 4:30p Main Office Kwabena Garcia M.D. 51178 I48.92 I24.1 Z95.0 I34.0 I36.1 Z23 Z79.01 Office Visit 01/28/2017 1:45p Main Office Kwabena Garcia M.D. 93480 M54.17 I48.92 I30.8 R79.89 R76.0 Office Visit 11/22/2016 9:45a Main Office Kwabena Garcia M.D. 85312 Z00.01 R06.00 M85.88 F51.09 H61.21 Z71.89 Z13.820 Office Visit 10/29/2016 3:30p Main Office Kwabena Garcia M.D. 50701 R53.83 R06.00 D72.829 I50.33 Office Visit 10/13/2016 2:30p Main Office Kwabena Garcia M.D. 11358 M66.821 I48.92 S46.011A Office Visit 08/10/2016 9:30a Main Office Kwabena Garcia M.D. 59027 M54.17 Office Visit 07/28/2016 1:30p Main Office Kwabena Garcia M.D. 45976 R00.0 Office Visit 06/15/2016 1:45p Main Office Kwabena Garcia M.D. 71743 R00.0 Office Visit 02/10/2016 4:30p Main Office Kwabena Garcia M.D. 05209 L13.9 L23.7 Office Visit 07/12/2015 9:15a Main Office Kwabena Garcia M.D. 72455 R00.0 Z23 Z41.8 Office Visit 10/08/2014 12:55p Main Office Kwabena Garcia M.D. 56705 V70.0 719.46 727.51 V76.51 782.1 380.4 708.9 Office Visit 07/23/2014 1:15p Main Office Kwabena Garcia M.D. 72721 719.46 719.06 727.51 Office Visit 07/16/2014 1:45p Main Office Kwabena Garcia M.D. 30872 786.09 786.50 719.46 719.06 729.81 Office Visit 03/19/2014 1:45p Main Office Kwabena Garcia M.D. 13290 389.9 Office Visit 09/19/2012 2:00p Main Office Kwabena Garcia M.D. 98093 V70.0 307.42 726.10 Office Visit 08/09/2012 11:00a Main Office Kwabena Garcia M.D. 42169 726.10 Office Visit 07/12/2012 4:15p Main Office Kwabena Garcia M.D. 87407 726.10 Office Visit 11/05/2011 9:45a Main Office Kwabena Garcia M.D. 15472 782.0 307.42 708.9 Office Visit 10/05/2011 5:00p Main Office Kwabena Garcia M.D. 01262 782.0 307.42 V77.91 Office Visit 09/17/2011 2:30p Main Office Kwabena Garcia M.D. 86721 V70.0 307.42 V06.1 V07.2 V79.0 Office Visit 10/05/2010 2:20p Main Office Pati Lawson 71572 380.4 388.70 388.2 Office Visit 09/14/2010 2:30p Main Office Kwabena Garcia M.D. 53514 V70.0 307.42 733.90 Office Visit 08/03/2010 3:00p Main Office Kwabena Garcia M.D. 81378 465.9 786.09 Office Visit 07/28/2010 10:00a [place] [address] 465.9 Office Visit 09/10/2009 9:45a Main Office Kwabena Garcia M.D. 06815 733.90 700 789.04 380.4 Office Visit 02/20/2009 1:30p Main Office Doug Tucker M.D. 35610 787.91 789.9 569.3 789.09 Office Visit 09/10/2008 8:55a Main Office Kwabena Garcia M.D. 68140 733.90 786.50 796.2 719.41 704.8 708.9 V70.0 Office Visit 09/05/2007 2:00p Main Office Kwabena Garcia M.D. 18132 796.2 380.4 V65.49 719.41 V70.0 V76.10 723.1 272.0 Office Visit 08/29/2007 3:45p Main Office Doug Tucker M.D. 01746 723.1 847.0 723.1 723.1 723.1 847.0 Office Visit 09/02/2006 2:45p Main Office Kwabena Garcia M.D. 29769 704.8 V70.0 733.90 719.47 Office Visit 09/01/2005 2:00p Main Office Kwabena Garcia M.D. 06060 733.90 272.0 307.42 796.2 380.4 V79.1 Office Visit 08/21/2004 4:00p Main Office Fred Cronin M.D. 02691 272.2 V06.5 Office Visit 07/29/2004 2:00p Main Office Fred Cronin M.D. 43296 389.9 627.2 V70.0 272.2 Plan of Care 11/28/2017 - Kwabena Garcia M.D.Z00.00 Encntr for general adult medical exam w /o abnormal findingsFollow up:RTO 1yr [facility].M65.342 Trigger finger, left ring fingerComments:Counseled re Dx. Discussed option of splinting finger overnight shani given Sxs mainly present just inthe am. Discussed option of injection. At this point her Sxs are pretty minimal and she prefers justobserving, RTO prn.F51.01 Primary insomniaComments:Longstanding, declined Rx medsI48.92 Unspecified atrial [id number] Encounter for immunizationComments:Counseled re DEMAR Root provided. Discussed cost. She will check into insurance coverage and callfor Rx or schedule RN visit prn to get the vaccine.
== END 2017-12-25 22:08 | disposition home or self-care (01) ==
LOC: UCEAST 21:36
DX: R07.89 Other chest pain (principal); R50.9 Fever, unspecified; I48.91 Unspecified atrial fibrillation; Z79.01 Long term (current) use of anticoagulants; Z95.810 Presence of automatic (implantable) cardiac defibrillator
CPT/HCPCS: 93005; 99212; G0463

== ENCOUNTER 2017-12-25 22:26 | Emergency (ER) | payer MEDICARE, OTHER ==
[2017-12-25 23:25] LABS: ABS Basophils 0.1 10^3/ul (0-0.2); ABS Eosinophils 0.1 10^3/ul (0-0.6); ABS Lymphocytes 2.2 10^3/ul (1.0-4.8); ABS Monocytes 0.6 10^3/ul (0-0.8); ABS Neutrophils 4.6 10^3/ul (1.5-7.7); ABS Nucleated RBC 0 10^3/ul; Eosinophil % 1.5 % (0-6); Hematocrit 38 % (35-47); Hemoglobin 12.6 g/dl (12.0-16.0); Lymphocyte % 29.4 % (25-47); Mean Corpuscular HGB Conc 34 g/dl (31-36); Mean Corpuscular Hemoglobin 31 pg (27-31); Mean Corpuscular Volume 93 fL (80-97); Mean Platelet Volume 8.8 um3 (7.4-10.4); Nucleated Red Blood Cells % 0; Platelet Count 218 10^3/ul (150-450); Red Blood Count 4.03 10^6/ul (4.0-5.4); Red Cell Distribution Width 14 % (10.5-15); White Blood Count 7.6 10^3/ul (3.5-10.8)
[2017-12-25 23:43] LABS: EGFR Non-African American 47.7 (>60)
[2017-12-26 02:23] VITALS: BP 146/90
--- NOTE | 2017-12-26 07:46 | RAD ---
INDICATION: Chest pain COMPARISON: Most recent comparison chest x-rays dated October 23, 2016 TECHNIQUE: PA and lateral views of the chest were obtained. 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 The heart and mediastinum are normal in size and contour. The lungs are grossly clear. There is no evidence of large pleural effusion. Visualized bones are normal for the patient's age. There is no radiographic evidence of free air beneath the diaphragm IMPRESSION: No radiographic evidence of acute cardiopulmonary disease.
--- NOTE | 2017-12-26 18:55 | ED ---
Nicky Kirkland Gabriel, scribMarck Ceballos MD on 12/25/17 at 2256 . HPI Chest Pain - HPI Summary HPI Summary: This patient is a 82 year old F presenting to [facility] accompanied by her with a chief complaint of sharp left sided CP that began at 21:30 while she was reading. The pain has resolved around 22:30. Today that patient was working with a pitch fork in her garden and moved several wheelbarrow loads of dirt. She worked in the garden till 1530 tonight then she made dinner and relaxed. The patient rates the waxing and waning pain 5/10 in severity on onset. She states she hasnt felt a pain like this before. Pt was seen at [facility] and was sent here for a further work up. Hx AFIB, lyme, and pacer. Pt denies ABD pain, nausea, cold symptoms, - History of Current Complaint Chief Complaint: EDChestPainROMI Time Seen by Provider: 12/25/17 22:46 Hx Obtained From: Patient Hx Last Menstrual Period: post Onset/Duration: Still Present Time of Onset: 21:30 Timing: Intermittent, Lasting Hours Pain Intensity: 5 Pain Scale Used: 0-10 Numeric Chest Pain Location: Left Anterior Chest Pain Radiates: No Associated Signs and Symptoms: Positive: Negative - ABD pain, nausea, cold symptoms, - Additional Pertinent History Primary Care Physician: MICHAEL - Allergy/Home Medications Allergies/Adverse Reactions: Allergies Allergy/AdvReac Type Severity Reaction Status Date / Time No Known Allergies Allergy Verified 12/25/17 22:40 PMH/Surg Hx/FS Hx/Imm Hx Endocrine/Hematology History: Denies: Hx Diabetes Cardiovascular History: Reports: Hx Atrial Fibrillation, Hx Pacemaker/ICD - /2016, Other Cardiovascular Problems/Disorders - atrial fibrillation Denies: Hx Hypertension History: Denies: Hx Dialysis, Hx Renal Disease Sensory History: Reports: Hx Contacts or Glasses Opthamlomology History: Reports: Hx Contacts or Glasses Psychiatric History: Denies: Hx Panic Disorder - Cancer History Hx Chemotherapy: No Hx Radiation Therapy: No - Surgical History Surgery Procedure, Year, and Place: pacemaker 08/31 Infectious Disease History: No Infectious Disease History: Denies: Traveled Outside the [place] in Last 30 Days - Family History Known Family History: Positive: Cardiac Disease - Social History Lives: With Family Alcohol Use: Daily Alcohol Amount: x 1 Substance Use Type: Reports: None Smoking Status (MU): Never Smoked Tobacco Review of Systems Positive: Chest Pain Negative: Abdominal Pain, Nausea All Other Systems Reviewed And Are Negative: Yes Physical Exam - Summary Physical Exam Summary: Appearance: Well-appearing, Well-nourished, lying in bed comfortably Skin: Warm, dry, no obvious rash Eyes: sclera anicteric, no conjunctiva pallor, ENT: mucous membranes moist, pharynx appears normal, Neck: Supple, nontender Respiratory: Clear to auscultation, no signs of respiratory distress Cardiovascular: Normal S1, S2. No murmurs. Normal distal pulses in tibial and radial bilaterally, Abdomen: Soft, nontender, normal active bowel sounds present Musculoskeletal: Normal, Strength/ROM Intact Neurological: A&Ox3, awake and alert, mentation is normal, speech is fluent and appropriate Psychiatric: affect is normal, does not appearing anxious or depressed Triage Information Reviewed: Yes Vital Signs On Initial Exam: Initial Vitals Temp Pulse Resp BP Pulse Ox 97.7 F 73 16 153/71 98 12/25/17 22:37 12/25/17 22:37 12/25/17 22:37 12/25/17 22:37 12/25/17 22:37 Vital Signs Reviewed: Yes Diagnostics - Vital Signs Vital Signs Temp Pulse Resp BP Pulse Ox 12/25/17 22:37 97.7 F 73 16 153/71 98 - Laboratory Result Diagrams: 12/25/17 23:06 12/25/17 23:06 Lab Statement: Any lab studies that have been ordered have been reviewed, and results considered in the medical decision making process. - Radiology CXR Xray Interpretation: No Acute Changes - no acute disease Radiology Interpretation Completed By: ED Physician - EKG No standard instances Cardiac Rate: NL EKG Rhythm: Sinus Rhythm ST Segment: Normal Ectopy: None EKG Comparison: No Significant Change - 10/23/16 Chest Pain Course/Dx - Course Course Of Treatment: Pt with sharp chest pain onset at rest without associated symptoms. No major risk factors for ACS. HEART score is 3, pt is low risk and is stable for discharge and followup outpt. - Diagnoses Provider Diagnoses: Atypical chest pain Discharge - Sign-Out/Discharge Documenting (check all that apply): Discharge/Admit/Transfer - Discharge Plan Condition: Good Disposition: HOME Patient Education Materials: Chest Pain (ED) Referrals: Kwabena Garcia MD [Primary Care Provider] - The documentation as recorded by the Nicky rogers Gabriel accurately reflects the service I personally performed and the decisions made by me, Marck Johnson MD.
== END 2017-12-26 02:49 | disposition home or self-care (01) ==
LOC: ED 22:26
DX: R07.89 Other chest pain (principal); I48.91 Unspecified atrial fibrillation; Z79.01 Long term (current) use of anticoagulants; Z95.810 Presence of automatic (implantable) cardiac defibrillator; R50.9 Fever, unspecified
CPT/HCPCS: 36415; 71046; 80053; 84484; 85025; 93005; 99212; 99283; G0463

== ENCOUNTER 2019-04-18 19:04 | Emergency (ER) | payer MEDICARE, OTHER ==
[2019-04-18 19:12] VITALS: BP 130/58
--- NOTE | 2019-04-18 19:21 | UC ---
Skin Complaint HPI - HPI Summary HPI Summary: 83-year-old woman comes in with a chief complaint of laceration to her right palm. Couple hours ago at home she cut it accidentally on his glass. She does not believe there is any foreign body in it but she cannot be sure. She is on blood thinner. Initially she got the bleeding stopped with direct pressure but then it broke up and started bleeding again so she came to clinic. No weakness no numbness. Feels well otherwise. Patient reports she is up-to-date on her tetanus. - History of Current Complaint Chief Complaint: UCLaceration Time Seen by Provider: 04/18/19 19:19 Stated Complaint: HAND LAC Hx Last Menstrual Period: post Pain Intensity: 2 - Allergy/Home Medications Allergies/Adverse Reactions: Allergies Allergy/AdvReac Type Severity Reaction Status Date / Time No Known Allergies Allergy Verified 04/18/19 19:12 PMH/Surg Hx/FS Hx/Imm Hx Previously Healthy: Yes Cardiovascular History: Atrial Fibrillation - Surgical History Surgical History: Yes Surgery Procedure, Year, and Place: pacemaker 08/31 - Family History Known Family History: Positive: Cardiac Disease - Social History Alcohol Use: Daily Alcohol Amount: x 1 Substance Use Type: None Smoking Status (MU): Never Smoked Tobacco Review of Systems All Other Systems Reviewed And Are Negative: Yes Constitutional: Positive: Negative Skin: Positive: Other - SEE HPI ENT: Positive: Negative Respiratory: Positive: Negative Cardiovascular: Positive: Negative Gastrointestinal: Positive: Negative Motor: Positive: Negative Neurovascular: Positive: Negative Musculoskeletal: Positive: Negative Neurological: Positive: Negative Psychological: Positive: Negative Is Patient Immunocompromised?: No Physical Exam Triage Information Reviewed: Yes Appearance: Well-Appearing, No Pain Distress, Well-Nourished Vital Signs: Initial Vital Signs Temp 97.7 F 04/18/19 19:08 Pulse 98 04/18/19 19:08 Resp 20 04/18/19 19:08 BP 130/58 04/18/19 19:08 Pulse Ox 97 04/18/19 19:08 Vital Signs Reviewed: Yes Eye Exam: Normal Eyes: Positive: Conjunctiva Clear Neck: Positive: Supple Respiratory: Positive: No respiratory distress Musculoskeletal: Positive: Strength Intact, ROM Intact, Other: - Normal capillary refill. Normal radial pulse. Neurological: Positive: Alert, Other: - Patient reports decreased sensation in the right fifth finger. Psychological: Positive: Age Appropriate Behavior Skin: Positive: Other - Patient has 2 lacerations on her right hand. First one is 2 cm long on the proximal palm on the ulnar side. The second one is 1 cm long more medial to the first laceration. Both subcutaneous. No active bleeding. Laceration Repair - Laceration Repair 1 Procedure Summary: RT PALM; NO FB FOUND ON EXAM Description: Linear Laceration Size After Repair: Length (cm) - 2CM Modified For Repair: No Type Injection: Local Anesthesia Used: 1.0% Lido Irrigation With Pressure Irrigation Device: Yes Closure Material: Sutures - #6 Closure Method: Single Layer Suture Of: Skin Suture Type: Prolene - 5-0 2 Procedure Summary: 1CM RT PALM Description: Linear Laceration Size After Repair: Length (cm) - 1CM Modified For Repair: No Type Injection: Local Anesthesia Used: 1.0% Lido Irrigation With Pressure Irrigation Device: Yes Closure Material: Sutures - #2 Closure Method: Single Layer Suture Of: Skin Suture Type: Prolene - 5-0 Course/Dx - Course Course Of Treatment: On the x-ray there appears to be a small foreign body. I did not find any foreign body when I was cleaning the wound. I discussed the x-rays with the patient radiologist reading is pending. To have her on Keflex prophylactically and have her follow up with hand specialist both for the possibility of foreign body and also because of the reported numbness in the right fifth finger. Patient she get reevaluated sooner if any signs of infections or questions or concerns. - Diagnoses Provider Diagnosis: Laceration of right hand with foreign body Discharge ED - Sign-Out/Discharge Documenting (check all that apply): Patient Departure All imaging exams completed and their final reports reviewed: No - Discharge Plan Condition: Stable Disposition: HOME Prescriptions: Cephalexin CAP* [Keflex CAP*] 500 mg PO TID #20 cap Patient Education Materials: Care For Your Stitches (ED), Laceration (ED), Soft Tissue Foreign Body (ED) Referrals: Kwabena Garcia MD [Primary Care Provider] - Additional Instructions: FOLLOW UP WITH THE ORTHOPEDIC HAND SPECIALIST FOR THE POSSIBLE FOREIGN BODY IN YOUR HAND AND THE NUMBNESS IN YOUR RIGHT LITTLE FINGER. GET RECHECKED SOONER IF YOUR CONDITION WORSENS; PAIN, SIGNS OF INFECTION OR ANY QUESTIONS OR CONCERNS. - Billing Disposition and Condition Condition: STABLE Disposition: Home
[2019-04-18] MEDS: Lidocaine 1% MPF ** 5 ML VIAL INJ ONE (19:23)
[2019-04-18] MEDS: Cephalexin CAP* 500 MG PO ONE (20:24)
--- NOTE | 2019-04-19 10:09 | UC ---
- Progress Note Progress Note: Review of final x-ray reading: Order Information: HAND RIGHT 2 views of the right hand demonstrates no fracture or dislocation. Tiny radiodensity is noted at the palmar aspect of the hand which may represent a tiny foreign body. IMPRESSION: Tiny radiodense foreign body in the volar aspect of the hand at the level of the carpal metacarpal joints. Consistent with preliminary reading by provider. No change in POC. Course/Dx - Diagnoses Provider Diagnoses: Laceration of right hand with foreign body Discharge ED - Sign-Out/Discharge Documenting (check all that apply): Post-Discharge Follow Up All imaging exams completed and their final reports reviewed: Yes - Discharge Plan Condition: Stable Disposition: HOME Prescriptions: Cephalexin CAP* [Keflex CAP*] 500 mg PO TID #20 cap Patient Education Materials: Care For Your Stitches (ED), Laceration (ED), Soft Tissue Foreign Body (ED) Referrals: Kwabena Garcia MD [Primary Care Provider] - Additional Instructions: FOLLOW UP WITH THE ORTHOPEDIC HAND SPECIALIST FOR THE POSSIBLE FOREIGN BODY IN YOUR HAND AND THE NUMBNESS IN YOUR RIGHT LITTLE FINGER. GET RECHECKED SOONER IF YOUR CONDITION WORSENS; PAIN, SIGNS OF INFECTION OR ANY QUESTIONS OR CONCERNS. - Billing Disposition and Condition Condition: STABLE Disposition: Home
== END 2019-04-18 20:30 | disposition home or self-care (01) ==
LOC: UCEAST 19:04
DX: S61.421A Laceration with foreign body of right hand, initial encounter (principal); W25.XXXA Contact with sharp glass, initial encounter; W45.8XXA Other foreign body or object entering through skin, initial encounter; Y92.019 Unspecified place in single-family (private) house as the place of occurrence of the external cause; I48.91 Unspecified atrial fibrillation; Z79.01 Long term (current) use of anticoagulants; Z95.0 Presence of cardiac pacemaker
CPT/HCPCS: 12001; 99212; A9270-GY; G0463

== ENCOUNTER 2022-04-24 11:10 | Observation (INO) ==
[2022-04-24 11:44] LABS: ABS Basophils 0.1 10^3/ul (0-0.2); ABS Eosinophils 0.4 10^3/ul (0-0.6); ABS Lymphocytes 2.2 10^3/ul (1.0-4.8); ABS Monocytes 0.6 10^3/ul (0-0.8); ABS Neutrophils 6.1 10^3/ul (1.5-7.7); Eosinophil % 4.3 %; Hematocrit 40 % (35-47); Hemoglobin 13.1 g/dL (12.0-16.0); Lymphocyte % 23.3 %; Mean Corpuscular HGB Conc 33 g/dL (31-36); Mean Corpuscular Hemoglobin 31 pg (27-31); Mean Corpuscular Volume 96 fL (80-97); Mean Platelet Volume 8.9 fL (7.4-10.4); Nucleated Red Blood Cells % 0.2; Platelet Count 197 10^3/uL (150-450); Red Blood Count 4.17 10^6 /uL (3.70-4.87); Red Cell Distribution Width 14 % (10-15); White Blood Count 9.3 10^3/uL (3.5-10.8)
[2022-04-24 11:49] LABS: INR 1.28 (0.89-1.11)
[2022-04-24 12:25] LABS: Albumin/Globulin Ratio 1.8 (1-3); Calcium 9.5 mg/dL (8.6-10.3); Globulin 2.2 g/dL (2-4); Potassium 4.9 mmol/L (3.5-5.0); Total Bilirubin 0.9 mg/dL (0.2-1.0); Total Protein 6.2 g/dL (6.4-8.9); eGFR CKD-EPI 61.8 (>60)
[2022-04-24] MEDS ORDERED: Furosemide 40 mg/4 ml IV VIAL IV SLOW PU ONE (12:43)
[2022-04-24 13:11] LABS: High Sensitivity Troponin 1 Hr 9 pg/mL (<15)
[2022-04-25 05:45] LABS: ABS Basophils 0.1 10^3/ul (0-0.2); ABS Eosinophils 0.7 10^3/ul (0-0.6); ABS Lymphocytes 1.9 10^3/ul (1.0-4.8); ABS Monocytes 0.5 10^3/ul (0-0.8); ABS Neutrophils 5.2 10^3/ul (1.5-7.7); Eosinophil % 8.6 %; Hematocrit 38 % (35-47); Hemoglobin 12.7 g/dL (12.0-16.0); Mean Corpuscular HGB Conc 33 g/dL (31-36); Mean Corpuscular Hemoglobin 32 pg (27-31); Mean Corpuscular Volume 95 fL (80-97); Nucleated Red Blood Cells % 0.1; Platelet Count 186 10^3/uL (150-450); Red Blood Count 4.03 10^6 /uL (3.70-4.87); Red Cell Distribution Width 14 % (10-15); White Blood Count 8.4 10^3/uL (3.5-10.8)
[2022-04-25 06:21] LABS: Blood Urea Nitrogen 20 mg/dL (6-24); CO2 Carbon Dioxide 31 mmol/L (22-32); Calcium 8.8 mg/dL (8.6-10.3); Chloride 99 mmol/L (101-111); Glucose 93 mg/dL (70-100); Magnesium 1.9 mg/dL (1.9-2.7); Potassium 4.2 mmol/L (3.5-5.0); Sodium 130 mmol/L (135-145); eGFR CKD-EPI 60.2 (>60)
[2022-04-25] MEDS ORDERED: Furosemide 20 mg/2 ml IV VIAL IV ONE (08:27)
[2022-04-25 13:48] VITALS: BP 145/74
== END 2022-04-25 15:25 | disposition home or self-care (01) ==
LOC: ED 11:10 → EDHOLD 11:10 → MEDTELE 15:55
PROVIDERS: ADMIT Internal Medicine; ATTEND Internal Medicine

== ENCOUNTER 2023-07-08 16:33 | Inpatient (IN) ==
[2023-07-08 17:25] LABS: ABS Lymphocytes 1.1 10^3/uL (1.0-4.8); ABS Monocytes 0.1 10^3/uL (0.0-0.9); ABS Neutrophils 6.3 10^3/uL (1.5-7.6); ABS Nucleated RBC 0.01 10^3/ul; Hematocrit 37.8 % (35-45); Hemoglobin 12.9 g/dL (11.5-14.3); Lymphocyte % 14.5 %; Mean Corpuscular Hemoglobin 33.4 pg (27-33); Mean Corpuscular Hgb Conc 34.1 g/dL (31-36); Mean Corpuscular Volume 97.9 fL (80-97); Mean Platelet Volume 8.4 fL (7.5-11.2); Nucleated Red Blood Cells % 0.2 %/100WBC (0.0-0.8); Platelet Count 137 10^3/uL (150-450); Red Blood Count 3.86 10^6/uL (3.63-4.92); Red Cell Distribution Width 12.9 % (12-17); White Blood Count 7.6 10^3/uL (3.8-11.8)
[2023-07-08 17:36] LABS: INR 1.37 (0.83-1.13)
[2023-07-08 17:45] LABS: Albumin 4.1 g/dL (3.2-5.2); Albumin/Globulin Ratio 1.4 (1-3); Calcium 9.5 mg/dL (8.6-10.3); Creatinine, Serum 1.31 mg/dL (0.51-0.95); Globulin 2.9 g/dL (2-4); Potassium 3.7 mmol/L (3.5-5.0); Total Bilirubin 1.2 mg/dL (0.2-1.0); eGFR CKD-EPI 39.7 (>60)
[2023-07-08] MEDS ORDERED: Lactated Ringers 1000 ml BAG 1,000 ML IV ONE (17:58)
[2023-07-08 19:09] LABS: Urine Appearance Cloudy; Urine Bilirubin Negative (Negative); Urine Blood 2+ (Negative); Urine Color Yellow; Urine Glucose 3+(>=500 mg/dL) (Negative); Urine Ketones Negative (Negative); Urine Nitrite Negative (Negative); Urine Protein 1+(30 mg/dL) (Negative); Urine Specific Gravity 1.009 (1.002-1.030); Urine Urobilinogen Negative (Negative)
[2023-07-08 19:19] LABS: High Sensitivity Troponin 1 Hr 31 pg/mL (<15)
[2023-07-08 19:24] LABS: Urine Bacteria Absent (Absent); Urine Granular Casts Present (Absent); Urine Red Blood Cell Trace(0-2/hpf) (Absent); Urine White Blood Cell Trace(0-5/hpf) (Absent)
[2023-07-08] MEDS ORDERED: Furosemide 40 mg/4 ml IV VIAL IV ONE (23:18)
[2023-07-09 03:44] LABS: Magnesium 2.2 mg/dL (1.9-2.7)
[2023-07-09 04:54] LABS: Osmolality Serum 278 mOsm/kg (275-295)
[2023-07-09] MEDS ORDERED: Furosemide 40 mg/4 ml IV VIAL IV SLOW PU ONE (05:30)
[2023-07-09 05:53] LABS: Urine Osmo 311 mOsm/kg (150-1150)
[2023-07-09] MEDS: Mometasone/Formoter 200/5 MDI INH SCH ×2 (08:53→19:24)
[2023-07-09] MEDS ORDERED: ELIQUIS 5 MG PO SCH (09:00)
[2023-07-09 13:00] LABS: Calcium 9.1 mg/dL (8.6-10.3); Creatinine, Serum 1.45 mg/dL (0.51-0.95); Potassium 2.9 mmol/L (3.5-5.0); eGFR CKD-EPI 35.1 (>60)
[2023-07-09] MEDS ORDERED: KCL 20 MEQ/100 ML IVPREMIX 20 MEQ/100 ML BAG IV ONE (13:08)
[2023-07-09] MEDS ORDERED: NS 0.9% 500 ml BAG 500 ML IV ONE (13:08)
[2023-07-09] MEDS ORDERED: Iodixanol (CONTRAST) 320 MG/ML 100 ML SDV IV ONE (15:45)
[2023-07-09] MEDS ORDERED: Metoprolol Tartrate 5 mg VIAL 5 ml VIAL (1 mg/ml) IV PRN (21:18)
[2023-07-09] MEDS: Enoxaparin 40 MG/0.4 ML SYR SUBCUT SCH (21:50)
[2023-07-10 06:41] LABS: Hematocrit 39.5 % (35-45); Hemoglobin 13.7 g/dL (11.5-14.3); Mean Corpuscular Hemoglobin 33.3 pg (27-33); Mean Corpuscular Hgb Conc 34.6 g/dL (31-36); Mean Corpuscular Volume 96.3 fL (80-97); Red Cell Distribution Width 12.7 % (12-17); White Blood Count 4.3 10^3/uL (3.8-11.8)
[2023-07-10 06:52] LABS: Calcium 9.2 mg/dL (8.6-10.3); Creatinine, Serum 1.42 mg/dL (0.51-0.95); Potassium 3.1 mmol/L (3.5-5.0)
[2023-07-10] MEDS: Mometasone/Formoter 200/5 MDI INH SCH ×2 (07:22→19:06)
[2023-07-10] MEDS ORDERED: KCL 20 MEQ/100 ML IVPREMIX 20 MEQ/100 ML BAG IV ONE (07:26)
[2023-07-10 09:26] LABS: Mean Platelet Volume 10.2 fL (7.5-11.2); Platelet Count 58 10^3/uL (150-450)
[2023-07-10] MEDS ORDERED: NS 0.9% 500 ml BAG 500 ML IV ONE (10:34)
[2023-07-10] MEDS ORDERED: Iodixanol (CONTRAST) 320 MG/ML 100 ML SDV IV ONE (11:08)
[2023-07-10 13:34] LABS: Hematocrit 37.2 % (35-45); Hemoglobin 12.8 g/dL (11.5-14.3); Mean Corpuscular Hemoglobin 33.3 pg (27-33); Mean Corpuscular Hgb Conc 34.4 g/dL (31-36); Mean Corpuscular Volume 96.7 fL (80-97); Mean Platelet Volume 9.9 fL (7.5-11.2); Platelet Count 53 10^3/uL (150-450); Red Blood Count 3.85 10^6/uL (3.63-4.92); Red Cell Distribution Width 13.1 % (12-17); White Blood Count 3.5 10^3/uL (3.8-11.8)
[2023-07-10] MEDS: Enoxaparin 40 MG/0.4 ML SYR SUBCUT SCH (21:53)
[2023-07-11 06:42] LABS: Hematocrit 39.8 % (35-45); Hemoglobin 13.5 g/dL (11.5-14.3); Mean Corpuscular Hemoglobin 32.7 pg (27-33); Mean Corpuscular Hgb Conc 33.9 g/dL (31-36); Mean Corpuscular Volume 96.6 fL (80-97); Platelet Count 46 10^3/uL (150-450); Red Blood Count 4.12 10^6/uL (3.63-4.92); Red Cell Distribution Width 13.1 % (12-17)
[2023-07-11 07:03] LABS: Calcium 8.6 mg/dL (8.6-10.3); Creatinine, Serum 3.47 mg/dL (0.51-0.95); Magnesium 2.9 mg/dL (1.9-2.7); Potassium 3.6 mmol/L (3.5-5.0); eGFR CKD-EPI 12.3 (>60)
[2023-07-11] MEDS: KCL 20 MEQ/100 ML IVPREMIX 20 MEQ/100 ML BAG IV SCH ×2 (09:53→12:49)
[2023-07-11 11:06] LABS: Folate > 20.00 ng/mL (5.90-24.80)
[2023-07-11 11:07] LABS: Vitamin B12 > 1450 pg/mL (180-914)
[2023-07-11] MEDS: Mometasone/Formoter 200/5 MDI INH SCH ×2 (11:13→19:06)
[2023-07-11 11:26] LABS: Direct Bilirubin 1.4 mg/dL (0.03-0.18); Indirect Bilirubin 1.1 mg/dL (0.3-1.0); Total Bilirubin 2.5 mg/dL (0.2-1.0)
[2023-07-11] MEDS: NS 0.9% 1000 ml BAG 1,000 ML IV SCH (12:49)
[2023-07-11] MEDS: DOXYcycline 100 MG in NS 0.9% 250 ml 250 ML IVPB SCH (14:54)
[2023-07-12] MEDS: DOXYcycline 100 MG in NS 0.9% 250 ml 250 ML IVPB SCH ×2 (02:53→15:31)
[2023-07-12] MEDS: NS 0.9% 1000 ml BAG 1,000 ML IV SCH ×2 (02:53→15:24)
[2023-07-12 06:28] LABS: Hematocrit 36.4 % (35-45); Hemoglobin 12.3 g/dL (11.5-14.3); Mean Corpuscular Hemoglobin 32.8 pg (27-33); Mean Corpuscular Hgb Conc 33.8 g/dL (31-36); Mean Corpuscular Volume 97.2 fL (80-97); Red Blood Count 3.74 10^6/uL (3.63-4.92); Red Cell Distribution Width 13.6 % (12-17); White Blood Count 3.2 10^3/uL (3.8-11.8)
[2023-07-12 06:54] LABS: Albumin 2.7 g/dL (3.2-5.2); Calcium 7.4 mg/dL (8.6-10.3); Creatinine, Serum 4.65 mg/dL (0.51-0.95); Globulin 2.8 g/dL (2-4); Magnesium 2.6 mg/dL (1.9-2.7); Potassium 3.9 mmol/L (3.5-5.0); Total Bilirubin 1.8 mg/dL (0.2-1.0); Total Protein 5.5 g/dL (6.4-8.9); eGFR CKD-EPI 8.7 (>60)
[2023-07-12 08:49] LABS: Mean Platelet Volume 10.8 fL (7.5-11.2); Platelet Count 33 10^3/uL (150-450)
[2023-07-12 08:50] LABS: ABS Lymphocytes 1.2 10^3/uL (1.0-4.8); ABS Monocytes 0.2 10^3/uL (0.0-0.9); ABS Neutrophils 1.7 10^3/uL (1.5-7.6); ABS Nucleated RBC 0.02 10^3/ul; Eosinophil % 0.2 %; Lymphocyte % 39.1 %; Nucleated Red Blood Cells % 0.5 %/100WBC (0.0-0.8)
[2023-07-12] MEDS: Mometasone/Formoter 200/5 MDI INH SCH ×2 (09:38→19:35)
[2023-07-12 09:59] LABS: INR 1.05 (0.83-1.13)
[2023-07-12 22:38] LABS: Urine Appearance Cloudy; Urine Bilirubin Negative (Negative); Urine Blood 2+ (Negative); Urine Color Yellow; Urine Glucose 3+(>=500 mg/dL) (Negative); Urine Ketones Negative (Negative); Urine Nitrite Negative (Negative); Urine Protein 2+(100 mg/dL) (Negative); Urine Specific Gravity 1.015 (1.002-1.030); Urine Urobilinogen Negative (Negative)
[2023-07-12 23:10] LABS: Urine Bacteria Absent (Absent); Urine Red Blood Cell 3+(>10/hpf) (Absent); Urine Squamous Epithelial Cell Present (Absent); Urine White Blood Cell Trace(0-5/hpf) (Absent)
[2023-07-13] MEDS: DOXYcycline 100 MG in NS 0.9% 250 ml 250 ML IVPB SCH ×2 (01:40→15:54)
[2023-07-13 01:59] LABS: Hepatitis B Surface Antigen Nonreactive (Nonreactive)
[2023-07-13 02:00] LABS: HIT ELISA 0.067 OD (<0.400); Heparin PF4 Antibody Interp Negative (Negative)
[2023-07-13 02:18] LABS: Hepatitis B Surface Ab Immune (Immune)
[2023-07-13 06:25] LABS: Hematocrit 36.3 % (35-45); Hemoglobin 12.3 g/dL (11.5-14.3); Mean Corpuscular Hemoglobin 32.8 pg (27-33); Mean Corpuscular Hgb Conc 33.8 g/dL (31-36); Red Blood Count 3.74 10^6/uL (3.63-4.92); Red Cell Distribution Width 13.8 % (12-17); White Blood Count 6.9 10^3/uL (3.8-11.8)
[2023-07-13 06:44] LABS: Albumin 2.7 g/dL (3.2-5.2); Calcium 7.6 mg/dL (8.6-10.3); Creatinine, Serum 5.22 mg/dL (0.51-0.95); Globulin 2.7 g/dL (2-4); Magnesium 2.6 mg/dL (1.9-2.7); Total Bilirubin 1.2 mg/dL (0.2-1.0); Total Protein 5.4 g/dL (6.4-8.9); eGFR CKD-EPI 7.6 (>60)
[2023-07-13 06:58] LABS: Mean Platelet Volume 11.7 fL (7.5-11.2); Platelet Count 40 10^3/uL (150-450)
[2023-07-13] MEDS: Mometasone/Formoter 200/5 MDI INH SCH ×2 (08:07→20:45)
[2023-07-13] MEDS ORDERED: Albumin Human 25% 25 GM/100 ML BTL IV PRN (09:02)
[2023-07-13] MEDS ORDERED: NS 0.9% 1000 ml BAG 100 ML IV PRN (09:02)
[2023-07-13] MEDS ORDERED: NS 0.9% 1000 ml BAG 200 ML IV PRN (09:02)
[2023-07-13] MEDS: Heparin 1,000 UNIT/ML 10 ml (10,000 UNITS) CATHLAB/DIALYSIS DIALYSIS PRN ×3 (11:20→14:12)
[2023-07-13 14:51] LABS: Anaplasma phagocytophilum Positive (Negative); B. miyamotoi PCR, B Negative (Negative); Babesia divergens/MO-1 Negative (Negative); Babesia ducani Negative (Negative); Ehrlichia chaffeensis Negative (Negative); Ehrlichia ewingii/canis Negative (Negative); Ehrlichia muris eauclairensis Negative (Negative)
[2023-07-14] MEDS: DOXYcycline 100 MG in NS 0.9% 250 ml 250 ML IVPB SCH ×2 (02:56→14:51)
[2023-07-14 06:38] LABS: ABS Basophils 0.1 10^3/uL (0.0-0.1); ABS Eosinophils 0.1 10^3/uL (0.0-0.5); ABS Lymphocytes 3.4 10^3/uL (1.0-4.8); ABS Monocytes 0.4 10^3/uL (0.0-0.9); ABS Neutrophils 5.3 10^3/uL (1.5-7.6); ABS Nucleated RBC 0.02 10^3/ul; Eosinophil % 1.6 %; Hematocrit 34.1 % (35-45); Hemoglobin 11.7 g/dL (11.5-14.3); Lymphocyte % 35.8 %; Mean Corpuscular Hemoglobin 32.6 pg (27-33); Mean Corpuscular Hgb Conc 34.3 g/dL (31-36); Mean Platelet Volume 11.3 fL (7.5-11.2); Nucleated Red Blood Cells % 0.2 %/100WBC (0.0-0.8); Platelet Count 41 10^3/uL (150-450); Red Blood Count 3.59 10^6/uL (3.63-4.92); Red Cell Distribution Width 13.7 % (12-17); White Blood Count 9.4 10^3/uL (3.8-11.8)
[2023-07-14 07:23] LABS: Albumin 2.6 g/dL (3.2-5.2); Calcium 7.8 mg/dL (8.6-10.3); Creatinine, Serum 3.93 mg/dL (0.51-0.95); Globulin 2.5 g/dL (2-4); Potassium 3.6 mmol/L (3.5-5.0); Total Bilirubin 1.3 mg/dL (0.2-1.0); Total Protein 5.1 g/dL (6.4-8.9); eGFR CKD-EPI 10.6 (>60)
[2023-07-14] MEDS: Mometasone/Formoter 200/5 MDI INH SCH ×2 (07:36→20:08)
[2023-07-14] MEDS: Heparin 1,000 UNIT/ML 10 ml (10,000 UNITS) CATHLAB/DIALYSIS DIALYSIS PRN ×4 (08:09→11:30)
[2023-07-14] MEDS ORDERED: Potassium Chlor 20 meq TAB.ER PO ONE (12:33)
[2023-07-14] MEDS ORDERED: Piperacillin/Tazobac 3.375 BAG 3.375 GM/100 ML BAG IV ONE (13:53)
[2023-07-14] MEDS ORDERED: Zosyn per Pharmacy NOTE FOLLOW UP SCH (14:00)
[2023-07-14 20:25] LABS: Albumin 2.2 g/dL (3.4-4.7); Flag, M-protein Isotype Negative (Negative)
[2023-07-14] MEDS: ZOSYN 3.375 GM Q12H per EXTENDED INFUSION IV SCH (21:13)
[2023-07-15] MEDS: DOXYcycline 100 MG in NS 0.9% 250 ml 250 ML IVPB SCH ×2 (02:43→16:34)
[2023-07-15 05:29] LABS: Albumin 2.5 g/dL (3.2-5.2); Creatinine, Serum 3.15 mg/dL (0.51-0.95); Direct Bilirubin 0.6 mg/dL (0.03-0.18); Globulin 2.4 g/dL (2-4); Indirect Bilirubin 0.7 mg/dL (0.3-1.0); Magnesium 1.8 mg/dL (1.9-2.7); Potassium 3.8 mmol/L (3.5-5.0); Total Bilirubin 1.3 mg/dL (0.2-1.0); Total Protein 4.9 g/dL (6.4-8.9); eGFR CKD-EPI 13.8 (>60)
[2023-07-15 05:37] LABS: Hematocrit 31.9 % (35-45); Mean Corpuscular Hemoglobin 32.6 pg (27-33); Mean Corpuscular Hgb Conc 34.4 g/dL (31-36); Mean Corpuscular Volume 94.9 fL (80-97); Platelet Count 56 10^3/uL (150-450); Red Blood Count 3.36 10^6/uL (3.63-4.92); Red Cell Distribution Width 13.6 % (12-17); White Blood Count 12.5 10^3/uL (3.8-11.8)
[2023-07-15] MEDS: Mometasone/Formoter 200/5 MDI INH SCH ×2 (07:19→19:49)
[2023-07-15 08:02] LABS: ABS Basophils 0.1 10^3/uL (0.0-0.1); ABS Eosinophils 0.2 10^3/uL (0.0-0.5); ABS Lymphocytes 5.3 10^3/uL (1.0-4.8); ABS Monocytes 0.5 10^3/uL (0.0-0.9); ABS Neutrophils 6.4 10^3/uL (1.5-7.6); ABS Nucleated RBC 0.02 10^3/ul; Eosinophil % 1.7 %; Lymphocyte % 42.3 %; Nucleated Red Blood Cells % 0.2 %/100WBC (0.0-0.8)
[2023-07-15] MEDS: ZOSYN 3.375 GM Q12H per EXTENDED INFUSION IV SCH ×2 (10:16→20:50)
[2023-07-15] MEDS: Heparin 1,000 UNIT/ML 10 ml (10,000 UNITS) CATHLAB/DIALYSIS DIALYSIS PRN ×3 (12:55→15:45)
[2023-07-16] MEDS: DOXYcycline 100 MG in NS 0.9% 250 ml 250 ML IVPB SCH ×2 (01:58→15:00)
[2023-07-16 05:02] LABS: Hematocrit 31.7 % (35-45); Hemoglobin 10.8 g/dL (11.5-14.3); Mean Corpuscular Hemoglobin 32.7 pg (27-33); Mean Corpuscular Hgb Conc 34.2 g/dL (31-36); Mean Corpuscular Volume 95.6 fL (80-97); Mean Platelet Volume 11.5 fL (7.5-11.2); Platelet Count 71 10^3/uL (150-450); Red Blood Count 3.31 10^6/uL (3.63-4.92); White Blood Count 12.5 10^3/uL (3.8-11.8)
[2023-07-16 05:12] LABS: Calcium 7.9 mg/dL (8.6-10.3); Creatinine, Serum 2.29 mg/dL (0.51-0.95); Magnesium 1.5 mg/dL (1.9-2.7); Potassium 3.5 mmol/L (3.5-5.0); eGFR CKD-EPI 20.3 (>60)
[2023-07-16 05:30] LABS: ABS Basophils 0.1 10^3/uL (0.0-0.1); ABS Eosinophils 0.4 10^3/uL (0.0-0.5); ABS Monocytes 0.7 10^3/uL (0.0-0.9); ABS Neutrophils 5.4 10^3/uL (1.5-7.6); ABS Nucleated RBC 0.01 10^3/ul; Lymphocyte % 48.1 %; Nucleated Red Blood Cells % 0.1 %/100WBC (0.0-0.8)
[2023-07-16] MEDS: Mometasone/Formoter 200/5 MDI INH SCH ×2 (07:08→19:44)
[2023-07-16] MEDS ORDERED: Potassium Chlor 20 meq TAB.ER PO ONE (08:43)
[2023-07-16] MEDS ORDERED: Magnesium Sulfate 2 gm BAG 2 GM/50 ML BAG IVPB ONE (08:43)
[2023-07-16] MEDS: ZOSYN 3.375 GM Q12H per EXTENDED INFUSION IV SCH ×2 (10:16→20:19)
[2023-07-17] MEDS: DOXYcycline 100 MG in NS 0.9% 250 ml 250 ML IVPB SCH ×2 (01:28→14:51)
[2023-07-17 05:31] LABS: Hematocrit 29.2 % (35-45); Mean Corpuscular Hemoglobin 32.5 pg (27-33); Mean Corpuscular Hgb Conc 34.2 g/dL (31-36); Mean Corpuscular Volume 95.1 fL (80-97); Mean Platelet Volume 10.5 fL (7.5-11.2); Platelet Count 92 10^3/uL (150-450); Red Blood Count 3.07 10^6/uL (3.63-4.92); Red Cell Distribution Width 13.8 % (12-17); White Blood Count 12.3 10^3/uL (3.8-11.8)
[2023-07-17 05:36] LABS: Calcium 7.9 mg/dL (8.6-10.3); Creatinine, Serum 3.32 mg/dL (0.51-0.95); Magnesium 2.2 mg/dL (1.9-2.7); Potassium 3.5 mmol/L (3.5-5.0)
[2023-07-17 06:02] LABS: ABS Basophils 0.1 10^3/uL (0.0-0.1); ABS Eosinophils 0.3 10^3/uL (0.0-0.5); ABS Lymphocytes 6.2 10^3/uL (1.0-4.8); ABS Monocytes 0.6 10^3/uL (0.0-0.9); ABS Neutrophils 5.2 10^3/uL (1.5-7.6); ABS Nucleated RBC 0.01 10^3/ul; Eosinophil % 2.1 %; Lymphocyte % 50.1 %; Nucleated Red Blood Cells % 0.1 %/100WBC (0.0-0.8)
[2023-07-17] MEDS: Mometasone/Formoter 200/5 MDI INH SCH ×2 (07:50→19:37)
[2023-07-17] MEDS: ZOSYN 3.375 GM Q12H per EXTENDED INFUSION IV SCH ×2 (09:57→20:48)
[2023-07-17] MEDS ORDERED: NS 0.9% 500 ml BAG 500 ML IV ONE (10:10)
[2023-07-18] MEDS: DOXYcycline 100 MG in NS 0.9% 250 ml 250 ML IVPB SCH ×2 (02:02→14:22)
[2023-07-18 05:34] LABS: Hematocrit 28.7 % (35-45); Hemoglobin 9.8 g/dL (11.5-14.3); Mean Corpuscular Hemoglobin 32.4 pg (27-33); Mean Corpuscular Hgb Conc 34.1 g/dL (31-36); Mean Corpuscular Volume 94.9 fL (80-97); Mean Platelet Volume 10.8 fL (7.5-11.2); Platelet Count 125 10^3/uL (150-450); Red Blood Count 3.03 10^6/uL (3.63-4.92); Red Cell Distribution Width 13.8 % (12-17); White Blood Count 12.8 10^3/uL (3.8-11.8)
[2023-07-18 05:52] LABS: Creatinine, Serum 3.63 mg/dL (0.51-0.95); Magnesium 1.8 mg/dL (1.9-2.7); Potassium 3.5 mmol/L (3.5-5.0); eGFR CKD-EPI 11.7 (>60)
[2023-07-18] MEDS: Heparin 1,000 UNIT/ML 10 ml (10,000 UNITS) CATHLAB/DIALYSIS DIALYSIS PRN ×4 (07:07→10:25)
[2023-07-18] MEDS: Mometasone/Formoter 200/5 MDI INH SCH ×2 (07:33→19:21)
[2023-07-18] MEDS: ZOSYN 3.375 GM Q12H per EXTENDED INFUSION IV SCH (11:19)
[2023-07-19] MEDS: DOXYcycline 100 MG in NS 0.9% 250 ml 250 ML IVPB SCH ×2 (02:44→13:51)
[2023-07-19 06:48] LABS: Hematocrit 30.2 % (35-45); Hemoglobin 10.3 g/dL (11.5-14.3); Mean Corpuscular Hemoglobin 32.4 pg (27-33); Mean Corpuscular Hgb Conc 34.1 g/dL (31-36); Mean Corpuscular Volume 95.1 fL (80-97); Mean Platelet Volume 10.5 fL (7.5-11.2); Platelet Count 166 10^3/uL (150-450); Red Blood Count 3.18 10^6/uL (3.63-4.92); Red Cell Distribution Width 13.6 % (12-17); White Blood Count 12.6 10^3/uL (3.8-11.8)
[2023-07-19 07:26] LABS: Calcium 8.2 mg/dL (8.6-10.3); Creatinine, Serum 2.58 mg/dL (0.51-0.95); Magnesium 1.5 mg/dL (1.9-2.7); Potassium 3.8 mmol/L (3.5-5.0); eGFR CKD-EPI 17.6 (>60)
[2023-07-19] MEDS: Mometasone/Formoter 200/5 MDI INH SCH ×2 (07:29→19:27)
[2023-07-19] MEDS ORDERED: Magnesium Sulfate IV 1GM/100ML 1 GM/100 ML BAG IV ONE (08:30)
[2023-07-19] MEDS ORDERED: Magnesium Sulfate 2 gm BAG 2 GM/50 ML BAG IVPB ONE (10:19)
[2023-07-20] MEDS: DOXYcycline 100 MG in NS 0.9% 250 ml 250 ML IVPB SCH ×2 (02:11→13:48)
[2023-07-20 07:04] LABS: Hematocrit 28.5 % (35-45); Hemoglobin 9.7 g/dL (11.5-14.3); Mean Corpuscular Hemoglobin 32.2 pg (27-33); Mean Corpuscular Hgb Conc 34.1 g/dL (31-36); Mean Corpuscular Volume 94.4 fL (80-97); Mean Platelet Volume 10.4 fL (7.5-11.2); Platelet Count 188 10^3/uL (150-450); Red Blood Count 3.02 10^6/uL (3.63-4.92); Red Cell Distribution Width 13.7 % (12-17); White Blood Count 12.7 10^3/uL (3.8-11.8)
[2023-07-20] MEDS: Mometasone/Formoter 200/5 MDI INH SCH ×2 (07:24→19:13)
[2023-07-20 07:59] LABS: Calcium 8.3 mg/dL (8.6-10.3); Creatinine, Serum 2.49 mg/dL (0.51-0.95); Magnesium 2.2 mg/dL (1.9-2.7); Potassium 3.6 mmol/L (3.5-5.0); eGFR CKD-EPI 18.4 (>60)
[2023-07-21] MEDS: DOXYcycline 100 MG in NS 0.9% 250 ml 250 ML IVPB SCH (02:29)
[2023-07-21 06:00] LABS: Hematocrit 27.4 % (35-45); Hemoglobin 9.5 g/dL (11.5-14.3); Mean Corpuscular Hemoglobin 32.8 pg (27-33); Mean Corpuscular Hgb Conc 34.7 g/dL (31-36); Mean Corpuscular Volume 94.7 fL (80-97); Mean Platelet Volume 9.8 fL (7.5-11.2); Platelet Count 204 10^3/uL (150-450); Red Cell Distribution Width 13.6 % (12-17); White Blood Count 12.3 10^3/uL (3.8-11.8)
[2023-07-21 06:20] LABS: Calcium 8.2 mg/dL (8.6-10.3); Creatinine, Serum 2.49 mg/dL (0.51-0.95); Magnesium 1.8 mg/dL (1.9-2.7); Potassium 3.9 mmol/L (3.5-5.0); eGFR CKD-EPI 18.4 (>60)
[2023-07-21] MEDS: Mometasone/Formoter 200/5 MDI INH SCH ×2 (07:37→19:39)
[2023-07-21] MEDS ORDERED: Bumetanide IV 0.25 MG/ML 4 ml VIAL (1 mg) IV SLOW PU ONE (10:58)
[2023-07-22 06:32] LABS: Calcium 8.3 mg/dL (8.6-10.3); Creatinine, Serum 2.35 mg/dL (0.51-0.95); Magnesium 1.5 mg/dL (1.9-2.7); Potassium 3.8 mmol/L (3.5-5.0); eGFR CKD-EPI 19.7 (>60)
[2023-07-22] MEDS: Mometasone/Formoter 200/5 MDI INH SCH (07:05)
[2023-07-22 09:40] LABS: Hematocrit 28.8 % (35-45); Hemoglobin 9.7 g/dL (11.5-14.3); Mean Corpuscular Hemoglobin 31.6 pg (27-33); Mean Corpuscular Hgb Conc 33.6 g/dL (31-36); Platelet Count 235 10^3/uL (150-450); Red Blood Count 3.06 10^6/uL (3.63-4.92); Red Cell Distribution Width 13.7 % (12-17); White Blood Count 11.8 10^3/uL (3.8-11.8)
[2023-07-22] MEDS ORDERED: Magnesium Sulfate 2 gm BAG 2 GM/50 ML BAG IVPB ONE (09:58)
[2023-07-22 10:00] LABS: ABS Basophils 0.1 10^3/uL (0.0-0.1); ABS Eosinophils 0.1 10^3/uL (0.0-0.5); ABS Lymphocytes 5.3 10^3/uL (1.0-4.8); ABS Monocytes 0.7 10^3/uL (0.0-0.9); ABS Neutrophils 5.7 10^3/uL (1.5-7.6); ABS Nucleated RBC 0.01 10^3/ul; Eosinophil % 0.6 %; Lymphocyte % 44.5 %; Nucleated Red Blood Cells % 0.1 %/100WBC (0.0-0.8)
[2023-07-22 15:20] VITALS: BP 115/56
[2023-07-22 18:27] LABS: ANNA-1, S Negative (Negative); ANNA-2, S Negative (Negative); DPPX Ab IFA, S Negative (Negative); GFAP IFA, S Negative (Negative); IFA Notes None.; NIF IFA, S Negative (Negative); Neurochondrin IFA, S Negative (Negative); mGluR1 Ab IFA, S Negative (Negative)
== END 2023-07-22 15:00 | disposition home or self-care (01) | DRG 291 ==
LOC: ED 16:33 → EDHOLD 16:33 → SUATTDRO 07-09 02:14 → MEDTELE 07-09 10:28 → SUATTDRO 07-11 09:57
PROVIDERS: ADMIT Internal Medicine; ATTEND Internal Medicine